=== PATIENT | female | born 1955 | race Caucasian/White ===

== ENCOUNTER 2023-09-13 12:50 | Inpatient (IN) | payer MEDICARE, OTHER, SELFPAY ==
[2023-09-13 13:50] VITALS: BMI 26.1
[2023-09-13 14:05] VITALS: BP 100/52; PULSE 84; RESP 17; TEMP 36.8; O2SAT 94
[2023-09-13] MEDS: Acetaminophen 325 MG Tablet 650 MG PO (15:11)
--- NOTE | 2023-09-13 15:15 | HP.PCM_ITS ---
HPI - General General Date of Admission: 09/13/23 Date of Service: 09/13/23 Chief Complaint: Debility secondary to left periprosthetic hip fracture/ORIF HPI Narrative MO LONG, is a 67 F with a PMH of Depression, HH, HTN, recurrent hyponatremia (no cause listed on H&P from [facility]) hx of BL TKA and hx of a LTHA in 2019 who presented to [facility] on 09/01/23 c/o of L hip pain after a ground level fall on 08/30/22 when she tripped over her own feet. Imaging revealed a left periprosthetic posterior wall acetabular fracture. Significant lab at admission included a low sodium at 129 with a BUN of 20 and a creatinine of 0.71. She underwent a cemented left hip hemiarthroplasty on 09/05/[address] Link Woodall. Postoperatively she was seen by PT/OT and a recommendation for acute inpatient rehab was made. She lives alone and prior to the recent fall she was independent with functional transfers, independent with household and community ambulation, independent with household management and all ADL's and she was driving. Mo was transferred to the in acute rehab unit at [facility] on 09/13/23 for 3 hours of therapy daily to restore function/independence at or near to her level prior to the recent fall. She tells me that she has not been out of bed for 2 weeks and had PT only once at [facility] and that was for the initial eval. She feels stiff and weak. She has never had a DEXA and she only sometimes takes a Vitamin D supplement. She had menopause in her late 40s. She has never been . [facility], [facility] Medical History (Updated 09/13/23 @ 19:[address] Julita Rasheed DO) Closed posterior wall fracture of left acetabulum Depression Hiatal hernia Hypertension Osteoarthritis Home Medications acetaminophen 325 mg capsule 650 mg PO Q4H PRN fever or pain 09/13/23 [History Last Taken Unknown] enoxaparin 40 mg/0.4 mL subcutaneous syringe (Lovenox) 40 mg subcut DAILY blood clot prevention 09/13/23 [History Last Taken Unknown] methocarbamol 500 mg tablet 500 mg PO TID PRN muscle spasm 09/13/23 [History Last Taken Unknown] multivitamin (Daily Multi-Vitamin tablet) 1 tab PO DAILY supplement 09/13/23 [History Last Taken Unknown] oxycodone 5 mg tablet 5 mg PO Q6H PRN pain 09/13/23 [History Last Taken Unknown] Allergy/AdvReac Type Severity Reaction Status Date / Time No Known Allergies Allergy Verified 09/13/23 13:54 Family History Mother Myocardial infarction Hypertension Father Prostate CA CVA (cerebral vascular accident) Family History unable to obtain Surgical History (Updated 09/13/23 @ 19:[address] Julita Rasheed DO) History of arthroplasty of left knee History of arthroplasty of right knee History of left hip hemiarthroplasty History of open reduction and internal fixation (ORIF) procedure History of tonsillectomy S/P total left hip arthroplasty Social History (Updated 09/13/23 @ 18:[address] 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 Smoking Status: Never smoker alcohol intake: current alcohol intake frequency: holidays/special occasions only details: Not currently substance use type: does not use ROS Constitutional Constitutional: Reports fatigue and weakness; Denies anorexia, change in weight, chills, fever(s) or night sweats Eyes Eyes: Denies blurry vision, change in vision, eye pain or loss of vision ENT HEENT: Denies abnormal hearing, dysphagia, headache(s), hearing loss, nasal congestion or sore throat Cardiovascular Cardiovascular: Denies chest pain, dyspnea on exertion, edema, lightheadedness, orthopnea, palpitations, paroxysmal nocturnal dyspnea or syncope Respiratory/Chest Respiratory/Chest: Denies cough, dyspnea, shortness of breath at rest, shortness of breath with exertion or wheezing Gastrointestinal Gastrointestinal: Denies abdominal pain, constipation, diarrhea, dyspepsia, hematemesis, hematochezia, nausea or vomiting Genitourinary Genitourinary: Reports other Details: She had a purewick catheter while at [facility] ; Denies dysuria, hematuria, nocturia, urinary frequency, urinary hesitancy, urinary incontinence or urinary urgency Musculoskeletal Musculoskeletal: Reports arthralgias, difficulty walking, joint pain, muscle weakness and stiffness; Denies back pain, joint swelling, neck pain or numbness Integumentary Integumentary: Reports dry skin; Denies alopecia, hirsutism, jaundice or rash Neurologic Neurologic: Denies confusion, disequilibrium, dizziness, focal weakness, headache(s), paresthesias, seizures or tremor(s) Psychiatric Psychiatric: Reports depression; Denies anxiety, homicidal ideation or suicidal ideation Endocrine Endocrinology: Denies change in body appearance, polydipsia or polyuria Hematologic/Lymphatic Hematologic/Lymphatic: Denies easy bleeding, easy bruising or lymphadenopathy Allergic/Immunologic Allergic/Immunologic: Denies rhinitis, eczemia or asthma Vital Signs Vital Signs Vital Signs: 09/13/23 14:05 Temperature 98.3 F Temperature Source Temporal Pulse Rate 84 Respiratory Rate 17 Blood Pressure 100/52 L Blood Pressure Mean 68 Blood Pressure Source Monitor Blood Pressure Position Semi-Fowlers Blood Pressure Location Right Arm Pulse Ox 94 Oxygen Delivery Method Room Air Weight Weight: 162 lb 0.636 oz Body Mass Index (BMI) 26.1 Physical Exam Const alert, oriented x3 and no apparent distress Constitutional Narrative: Making good eye contact, appropriate. Very talkative, pleasant General Appearance: cooperative and comfortable HEENT normocephalic, head/scalp atraumatic and hearing grossly normal bilaterally HEENT Narrative: Dry mucous membranes Eyes PERRL, EOMs intact bilaterally, conjunctivae normal, no scleral icterus and normal visual churchill by confrontation General Eye: normal appearance of both eyes Neck no lymphadenopathy, supple, no JVD and no carotid bruits Chest Chest: symmetrical chest wall rise Resp normal respiratory effort, normal air movement, no use of accessory muscles and clear to auscultation bilaterally Resp Narrative: Not tachypneic and no conversational dyspnea. Effort and Inspection: able to speak in complete sentences Cardio regular rate, regular rhythm, S1 normal heart sound, S2 normal heart sound, no murmurs, no rub and no gallops GI normal to inspection, nondistended, normoactive bowel sounds, soft to palpation and non-tender GI Narrative: No guarding with palpation. Narrative: She tells me she is having muscle spasms in the left flank. She did have a pure wick catheter at [facility] and could have a UTI. She denies nausea. She also denies dysuria. Back/Spine thoracic and lumbar spine normal to inspection Extremity no clubbing, cyanosis or edema and no calf tenderness Extremity Narrative: Negative Sonny's and Lilly's signs. The dorsalis pedis pulses are barely palpable but she has good posterior tibial pulses bilaterally and the popliteal pulses are 3+ bilaterally. The feet are warm to touch bilaterally. Skin no jaundice, no petechiae and no mottling Skin Narrative: No rashes, no skin breakdown. General Skin Exam: no breakdown Rashes: no rashes Hair: normal Neuro oriented x3, CN's II-XII intact bilaterally and no focal motor deficits Motor Exam: strength 5/5 throughout Psych affect normal Psych Narrative: Appropriate, making good eye contact. Able to stay on topic and focus. No flight of ideas. Does not appear anxious or depressed. Conversant and relating well to staff. Assessment & Plan Assessment/Plan (1) Debility: (2) Closed posterior wall fracture of left acetabulum: QUALIFIERS: Encounter type: subsequent encounter Fracture alignment: displaced (3) History of left hip hemiarthroplasty: (4) Osteoarthritis: QUALIFIERS: Osteoarthritis location: multiple joints Osteoarthritis type: primary Qualified Code(s): M15.9 - Polyosteoarthritis, unspecified (5) Depression: QUALIFIERS: Depression Type: reactive depression Qualified Code(s): F32.9 - Major depressive disorder, single episode, unspecified (6) Hypertension: QUALIFIERS: Hypertension type: primary hypertension Qualified Code(s): I10 - Essential (primary) hypertension PLAN: Plan PLAN PT for gait stability OT for ADL's Analgesics as needed - pt prefers that pain meds be scheduled for the first few days Bowel protocol Fall precautions Assess for Anxiety/Depression GI prophylaxis -not necessary at this time. She denies any history of peptic ulcer disease and also denies heartburn at the present time. She also denies nausea/vomiting/epigastric pain. DVT prophylaxis with enoxaparin Follow up with PCP and orthopedics following DC from [facility] AM lab including CMP, CBC, Mag, vitamin D and Phos Straight cath for UA Recommend she have a DEXA done as an OP to determine if she has osteopenia or osteoporosis Charges/Coding Visit Charges Inpatient E&M: 37320 Init Hosp L2
[2023-09-13] MEDS: oxyCODONE 5 MG Tablet PO (17:56)
[2023-09-13 18:04] VITALS: BP 111/66; PULSE 75; RESP 17; TEMP 37.4; O2SAT 95
--- NOTE | 2023-09-13 19:14 | PCM.RU.PYE ---
Admission Information Primary Diagnosis:: Physical debility secondary to recent left hip periprosthetic fracture/hemiarthroplasty Status Changes from Prescreening?: No changes Identified Actual Problem List:: Falls, Skin Intergrity, Pain, ALteration in Cmfrt, Depression, Alteration in Sleep, Mobility Impaired, Self Care Deficit, Fluid Change-Dehydration and Alteration-Leisure Activ. Potential Problem List:: DVT, Bleeding, Infection, UTI, Aspiration, Falls, Skin Integrity and Depression Risk of Complications DVT: LMWH and MARLY Hose Bleeding: Monitor Lab Values, Nursing to Teach Precautions for anti-coagulation therapy., Wound, if applicable, to be assessed every shift. and Stroke patients assessed for lethargy or change in status. Infection: Clinical Staff to Monitor for S/S of infection: and S/S of infection include fever, redness, warmth, etc. Urinary Tract Infection: Monitor for frequency, burning, discomfort, or incontinence. and Nursing will obtain urine sample for urinalysis and C&S when ordered. Aspiration: Clinical staff will monitor for coughing, drooling, congestion., Speech will evaluate swallowing and dsyphasia. and Nursing will monitor patient swallowing during meals. Falls: Patient will be evaluated for Fall Precautions and Patient will be placed on Fall Precautions as indicated per protocol. Skin Breakdown: Nursing will assess skin daily using assessment tool. and Nursing will place on Skin Breakdown Precautions as indicated. Pain: Clinical staff will assess patient's pain level per protocol., Medications will be given, if needed, and the pain level reassessed. and Other methods: Massage, distraction, decrease stimulus, etc. used PRN. Plan of Care Patient requires physician specializing in physical medicine and rehab oversight to provide close medical supervision of rehab issues including: Pain Management, Sleep Problems, Bowel and Bladder, Medical and co-morbidity Management, DVT prophylaxis, Rehabilitation Leadership and Coordination of treatment team Patient needs Physical Therapy: For a minimum of 1 hour and At least 5 out of 7 days Patient needs Physical Therapy to improve:: Mobility, Strengthening, Transfers, Stretching, ROM, Endurance, Stairs, Gait and Balance Patient needs Occupational Therapy: For a minimum of 1 hour and At least 5 out of 7 days Patient needs Occupational Therapy to improve ADL's incl.: Eating, Grooming, Bathing, Dressing, Toileting, Toilet transfers, Community Reintegration, Higher functioning activities, Household tasks, Adaptive Equipment, Splinting and Other activities as determined Patient requires 24/7 Rehabilitation Nursing for: Pain Issues, Identifying and preventing risk factors, Monitoring and reporting current medical conditions, Assisting with ambulation, transfer, and all ADL's, Teaching patients about disease process and medications, Family teaching, Providing safe environment, Bowel and Bladder Issues, Skin integrity and Medication Management Patient needs Union Contract Representative/ Case Management for: Discharge Planning, Arranging Home Equipment or Services and Family Interventions Patient needs Dietary and Nutrition Services for: Adequate Nutrition, Nutritional Supplements and Nutritional Education Goals Goals Patient will remain: free from falls Patient will perform eating at: MOD I level of assist. Patient will perform bed mobility at: MOD I level of assist. Patient will complete transfers from bed to chair at: MOD I level of assist. Patient will ambulate: - (150 feet on various surfaces, including a ramp, at standby assist with a wheeled walker) Patient will complete upper body dressing at: MOD I level of assist. Patient will complete lower body dressing at: MOD I level of assist. (With adaptive equipment as needed) Patient will complete toilet transfer at: MOD I level of assist. Patient will complete toileting at: MOD I level of assist. Patient will perform bathing at: MOD I level of assist. Patient will perform Tub/Shower transfer at: MOD I level of assist. Patient will complete grooming at: MOD I level of assist. Patient will complete home management skills at: MOD I level of assist. Patient will achieve: 12 stairs (With 2 handrails at standby assist to allow access to her bedroom.) Patient will have pain level of: of 3 or less Patient's skin will: remain intact Patient will receive: adequate nutrition. Discharge Planning Pt Prognosis for Sig. Practical Improv. w/in Reasonable Time: Good Estimated Length of stay (days): 21 Anticipated D/C Destination: Home with Home Health Was Preadmission Assessment Accurate?: Yes
[2023-09-13 20:40] VITALS: O2SAT 95
--- NOTE | 2023-09-13 20:40 | CPS ---
pep/smi not done due to RT busy in ED
[2023-09-13] MEDS: Senna/Docusate Sodium 1 Tablet 2 TABLET PO (21:41)
[2023-09-13] MEDS: oxyCODONE 5 MG Tablet 10 MG PO (21:41)
[2023-09-13 22:00] VITALS: BP 111/66; PULSE 75; RESP 17; TEMP 37.4; O2SAT 95
[2023-09-13] MEDS: Methocarbamol 500 MG Tablet PO (22:30)
[2023-09-14 01:37] LABS: Bacteria 0 SEEN /hpf (None Seen); Mucous, Urine 0 SEEN /hpf (<or=2+); Red Blood Cells-Urine 0 SEEN /hpf (0-5); White Blood Cells 0 SEEN /hpf (0-5)
[2023-09-14 01:38] LABS: Color, Urine Yellow (Yellow); Glucose, Dipstick Normal (Normal); Ketone-Dipstick Negative (Negative); Leukocyte Esterase-Dipstick Negative /ul (Negative); Nitrite-Dipstick Negative (Negative); Occult Blood-Urine Negative /ul (Negative); Protein-Dipstick Negative (Negative); Specific Gravity, Urine 1.015 (1.002-1.030); Urine Bilirubin Dipstick Negative (Negative); Urine Clarity Clear (Clear); Urine Urobilinogen Normal (Normal)
[2023-09-14 01:46] LABS: Squamous Epithelial Cells - UA 0-5 SEEN /hpf (5-10)
[2023-09-14] MEDS: Acetaminophen 500 MG Tablet 1000 MG PO ×2 (03:42→13:30)
[2023-09-14] MEDS: Enoxaparin 40 MG/0.4 ML Syringe SC (05:03)
[2023-09-14] MEDS: oxyCODONE 5 MG Tablet PO ×3 (05:03→15:53)
[2023-09-14 06:06] LABS: Absolute Lymphocyte Count 1.87 X10^3/uL (0.83-4.51); Absolute Neutrophil Count 5.3 X10^3/uL (2.0-7.7); Basophil# 0.04 X10^3/uL; Basophil% 0.5 % (0-1); Eosinophil# 0.35 X10^3/uL; Eosinophils% 4.1 % (0-5); Hematocrit 23.2 % (37-47); Hemoglobin 7.3 g/dL (12.0-15.0); Lymphocyte # 1.87 X10^3/ul (0.83-4.51); Lymphocyte % 21.9 % (19-41); Mean Corp Hgb Conc 31.5 g/dL (32-36); Mean Corpuscular Hgb 31.9 pg (27.0-32.0); Mean Corpuscular Volume 101.3 fL (81-99); Mean Platelet Vol. 7.9 fl (6.2-12.0); Monocyte# 0.93 X10^3/uL; Monocyte% 10.9 % (0-10); NRBC Flagged by Analyzer 0 % (0-5); Neutrophil # 5.28 X10^3/uL (2.7-7.7); Neutrophil % 61.9 % (47-70); POSITIVE COUNT YES; RBC Distribution Width CV 13.2 % (11.6-14.6); RBC Distribution Width SD 48.8 fl (35.1-43.9); Red Blood Count 2.29 M/mm3 (4.2-5.4); White Blood Count 8.5 K/mm3 (4.4-11.0)
[2023-09-14 06:52] LABS: ALB/GLOB Ratio 0.6 RATIO (0.9-2.4); AST(SGOT) 26 U/L (15-37); Alanine Aminotransfer ALT/SGPT 32 U/L (13-56); Albumin, Serum 2.4 g/dL (3.2-5.0); Alkaline Phosphatase 119 U/L (45-117); Anion Gap 6 (5-15); BUN 20 mg/dL (7-18); BUN/Creat Ratio 35.1 RATIO (10-20); Calcium,Total 8.5 mg/dL (8.5-10.1); Chloride 101 mmol/L (98-107); Creatinine, Serum 0.57 mg/dL (0.55-1.02); EST Glomerular Filtration Rate 112 mL/min (>60); Est Glom Filt Rate - Afr Amer 136 mL/min (>60); Estimated Creatinine Clearance 51.11 ml/min; Globulin 4.3 g/dL (2.2-4.2); Glucose 95 mg/dL (74-106); Magnesium 2.3 mg/dL (1.6-2.6); Phosphorus 3.3 mg/dL (2.5-4.9); Potassium 3.8 mmol/L (3.5-5.1); Protein, Total 6.7 g/dL (6.4-8.2); Sodium Level 133 mmol/L (136-145)
[2023-09-14 07:05] VITALS: O2SAT 93
[2023-09-14 07:26] LABS: Differential Indicated SCAN CRITERIA MET; Platelet Count 836 K/mm3 (150-450)
[2023-09-14] MEDS: Methocarbamol 500 MG Tablet PO ×3 (08:10→20:29)
[2023-09-14] MEDS: Senna/Docusate Sodium 1 Tablet 2 TABLET PO ×2 (08:14→20:28)
[2023-09-14] MEDS: Multivitamins,Therapeutic Tablet 1 TABLET PO (08:15)
--- NOTE | 2023-09-14 08:15 | NURSING ---
Dr. Rasheed aware of elevated platelet count. JETHRO's.
[2023-09-14 08:18] LABS: Vitamin D,25 Hydroxy 40.6 ng/mL
[2023-09-14 08:29] LABS: Differential Comment SCANNED; Platelet Estimate MKD INC (ADEQ)
[2023-09-14 08:59] VITALS: BP 107/72; PULSE 78; RESP 18; TEMP 36.8; O2SAT 95
--- NOTE | 2023-09-14 10:49 | PCM.PROGNOTE ---
Subjective Subjective Afebrile VSS Maintaining appropriate oxygen saturation on RA Oral intake is fair-she ate 50 to 74% of her breakfast. Discussed with nursing - no problems that need addressed Reviewed the PT/OT notes Medication list reviewed. All lab drawn this morning was personally reviewed. White blood cell count is normal at 8.5 with an unremarkable differential. Hemoglobin is 7.3 with an MCV of 101.3. Platelets are high at 836,000. The hemoglobin was 8.3 at discharge from [facility]. Sodium is mildly decreased at 133 and potassium is 3.8. The BUN is 20 with a creatinine of 0.57 and a BUN/creatinine ratio of 35.1. Phosphorus, magnesium and calcium are all within normal limits. LFTs are unremarkable. Vitamin D level is within normal limits at 40.6. UA had no bacteria and no white blood cells. She did not fall asleep until 3:00 last night. She tells me her pain is adequately controlled. She has some lightheadedness when sitting up today. She denies chest pain, shortness of breath, palpitations, dysuria, cephalgia, calf pain. Objective Data Objective Data Vital Signs: Vital Signs Temp Pulse Resp BP Pulse Ox O2 Del Method 98.2 F 78 18 107/72 95 Room Air 09/14/23 08:59 09/14/23 08:59 09/14/23 08:59 09/14/23 08:59 09/14/23 08:59 09/14/23 08:59 Oxygen Delivery Method Room Air Weight: 162 lb 0.636 oz Body Mass Index (BMI) 26.1 Intake & Output: Intake and Output for Last 24 Hours 09/12/23 09/13/23 09/14/23 23:59 23:59 23:59 Intake Total 320 / 570 850 / 850 Output Total 400 / 700 300 / 300 Balance -80 / -130 550 / 550 Lab / Micro Data 09/14/23 05:46 09/14/23 05:46 Labs: Laboratory Results - last 24 hr 09/13/23 22:28: Urine Color Yellow, Urine Clarity Clear, Urine pH 6.0, Ur Specific Anderson 1.015, Urine Protein Negative, Urine Glucose (UA) Normal, Urine Ketones Negative, Urine Occult Blood Negative, Urine Nitrite Negative, Urine Bilirubin Negative, Urine Urobilinogen Normal, Ur Leukocyte Esterase Negative, Urine RBC 0 SEEN, Urine WBC 0 SEEN, Ur Squamous Epith Cells 0-5 SEEN, Urine Bacteria 0 SEEN, Urine Mucus 0 SEEN 09/14/23 05:46: WBC 8.5, RBC 2.29 L, Hgb 7.3 L, Hct 23.2 L, MCV 101.3 H, MCH 31.9, MCHC 31.5 L, RDW Std Deviation 48.8 H, RDW Coeff of Kindra 13.2, Plt Count 836 H*, MPV 7.9, Immature Gran % (Auto) 0.700, Neut % (Auto) 61.9, Lymph % (Auto) 21.9, Thayer % (Auto) 10.9 H, Eos % (Auto) 4.1, Baso % (Auto) 0.5, Absolute Neuts (auto) 5.3, Absolute Lymphs (auto) 1.87, Nucleated RBC % 0, Differential Comment SCANNED, Diff Path Review January, Platelet Estimate MKD INC, Sodium 133 L, Potassium 3.8, Chloride 101, Carbon Dioxide 26.0, Anion Gap 6, BUN 20 H, Creatinine 0.57, Estim Creat Clear Calc 51.11, Est GFR (MDRD) Af Amer 136, Est GFR (MDRD) Non-Af 112, BUN/Creatinine Ratio 35.1 H, Glucose 95, Calcium 8.5, Phosphorus 3.3, Magnesium 2.3, Total Bilirubin 0.40, AST 26, ALT 32, Alkaline Phosphatase 119 H, Total Protein 6.7, Albumin 2.4 L, Globulin 4.3 H, Albumin/Globulin Ratio 0.6 L, Vitamin D 25-Hydroxy 40.6 Physical Exam Const alert, oriented x3 and no apparent distress Constitutional Narrative: Laying flat in bed with no JVD and no shortness of breath. General Appearance: cooperative HEENT Mouth: dry mucous membranes Resp clear to auscultation bilaterally Cardio regular rate, regular rhythm and no gallops GI normal to inspection, nondistended, normoactive bowel sounds, soft to palpation and non-tender GI Narrative: No guarding with palpation Extremity no calf tenderness General Extremity: Negative for edema Skin Skin Narrative: The incision is intact with no dehiscence. There is no carlitos-incisional erythema and no purulent discharge. Neuro CN's II-XII intact bilaterally, no focal motor deficits and no sensory deficits noted Psych cooperative and affect normal Appearance: appropriate Attitude: No agitated Activity / Motor Behavior: Negative for restless Assessment & Plan Assessment/Plan (1) Debility: (2) Closed posterior wall fracture of left acetabulum: QUALIFIERS: Encounter type: subsequent encounter Fracture alignment: displaced (3) History of left hip hemiarthroplasty: (4) Osteoarthritis: QUALIFIERS: Osteoarthritis location: multiple joints Osteoarthritis type: primary Qualified Code(s): M15.9 - Polyosteoarthritis, unspecified (5) Depression: QUALIFIERS: Depression Type: reactive depression Qualified Code(s): F32.9 - Major depressive disorder, single episode, unspecified (6) Hypertension: QUALIFIERS: Hypertension type: primary hypertension Qualified Code(s): I10 - Essential (primary) hypertension (7) Hyponatremia: (8) Dehydration: (9) Acute blood loss anemia: (10) Thrombocytosis: PLAN: Plan 1. Continue therapy 2. Type and screen for active blood cells in anticipation of having to transfuse following hydration today. I suspect hemoglobin will drop to less than 7. 3. Thrombocytosis is likely reactive 4. Start normal saline and give a 500 cc bolus over 1 hour and then run the IV at 100 cc/h for an additional 2 L. 5. Recheck a hemoglobin and hematocrit at 6 PM today and if hemoglobin is less than 7 transfuse 6. Check a urine sodium, urine creatinine and calculate a fractional excretion of sodium 7. Check a TSH Charges/Coding Visit Charges Inpatient E&M: 21607 Subs Hosp L2
[2023-09-14] MEDS: 0.9% Normal Saline (250mL Bag) 250 ML 999 ML IV (11:36)
[2023-09-14 12:06] LABS: Thyroid Stim Hormone (TSH) 0.62 uIU/mL (0.358-3.74)
[2023-09-14] MEDS: 0.9% Normal Saline (1000mL) 1,000 ML 100 ML IV ×2 (12:15→21:30)
[2023-09-14 14:27] LABS: Urine Sodium 18 mmol/L (Not Establ.)
[2023-09-14 19:25] LABS: Hematocrit 22.4 % (37-47); Hemoglobin 7.2 g/dL (12.0-15.0)
[2023-09-14] MEDS: oxyCODONE 5 MG Tablet 10 MG PO (20:28)
[2023-09-14 22:00] VITALS: BP 109/63; PULSE 98; RESP 18; TEMP 36.2; O2SAT 92
[2023-09-15] MEDS: Acetaminophen 500 MG Tablet 1000 MG PO ×2 (02:51→22:52)
[2023-09-15] MEDS: oxyCODONE 5 MG Tablet PO ×3 (04:24→15:57)
[2023-09-15] MEDS: Enoxaparin 40 MG/0.4 ML Syringe SC (04:24)
[2023-09-15] MEDS: Methocarbamol 500 MG Tablet PO ×2 (04:25→23:22)
[2023-09-15 05:56] LABS: Hemoglobin 7.3 g/dL (12.0-15.0)
[2023-09-15 06:00] VITALS: BMI 22.8
[2023-09-15 06:41] LABS: Anion Gap 5 (5-15); BUN 13 mg/dL (7-18); Calcium,Total 8.1 mg/dL (8.5-10.1); Chloride 107 mmol/L (98-107); Creatinine, Serum 0.46 mg/dL (0.55-1.02); EST Glomerular Filtration Rate 142 mL/min (>60); Est Glom Filt Rate - Afr Amer 172 mL/min (>60); Estimated Creatinine Clearance 51.11 ml/min; Glucose 95 mg/dL (74-106); Sodium Level 136 mmol/L (136-145)
[2023-09-15] MEDS: Senna/Docusate Sodium 1 Tablet 2 TABLET PO ×2 (08:57→21:23)
[2023-09-15] MEDS: Multivitamins,Therapeutic Tablet 1 TABLET PO (08:57)
[2023-09-15 09:18] VITALS: BP 137/78; PULSE 76; RESP 17; TEMP 36.8; O2SAT 99
--- NOTE | 2023-09-15 11:00 | NURSING ---
30 cory removed from patient's hip. pt tolerated well. ABD's and tape placed over incision d/t some drainage present.
--- NOTE | 2023-09-15 11:50 | NURSING ---
Contacted Dr Cisneros's office for podiatry consult. Dr Culver is on-call so he will be seeing the pt.
[2023-09-15 12:04] LABS: Pathologist Review Reviewed
--- NOTE | 2023-09-15 13:17 | PCM.CONS.GEN ---
Assessment & Plan Assessment/Plan (1) Chronic pain of toe of right foot: (2) Chronic pain of toe of left foot: (3) Tinea unguium: (4) Debility: PLAN: Plan Patient seen and evaluated I reviewed the patient's case. The etiology of thickened toenails was briefly reviewed including fungus or microtrauma. The nails 1, 2, 3, 4, and 5 of the left and right foot were debrided with a nail nipper after verbal consent was obtained without incident. The nails 1, 2, 3, 4, and 5 of the left and right foot were debrided in length and thickness to reduce pressure, potential fungal load, and to prevent wound formation. The patient tolerated this well. The patient elects proceed with palliative care only at this time with the nails and will hold off on further work-up. To wear protective and supportive shoes. To check feet daily and keep webspaces clean and dry. To moisturize skin to preserve skin integrity was also recommended. Patient will continue physical rehabilitation s/p hemiarthroplasty/ORIF left hip fracture while in house. Podiatry to sign off Jr. Carmen Mullins.[facility] [phone] HPI Consult Data Date of Consult: 09/15/23 HPI Narrative Reason for Consultation: Thickened, elongated nails 1-5 bilateral. HPI Narrative: ALLISON LONG, is a 67 F who presents to [facility] for strengthening and rehabilitation prior to discharge home following left hip fracture. Patient states she was at home in her house when she tripped over her own feet falling on her left side resulting in left hip fracture. She was treated surgically at [facility] in [place] and was transferred for rehabilitation at [facility]. Patient is participating in physical therapy and states she is trying to do the best she can but still admits to some pain and discomfort. She does complain today of elongated, thickened nails 1 through 5 bilateral foot and states that it is creating difficulty wearing shoes and using toes to aid in balance. She is asking for assistance and debridement of nails today. Patient is nondiabetic. She was consulted to podiatry for debridement of toenails 1 through 5 bilateral. [facility] Medical History (Updated 09/15/23 @ 13:[address] Td Andrew, DPM) Closed posterior wall fracture of left acetabulum Depression Hiatal hernia Hypertension Osteoarthritis Home Medications acetaminophen 325 mg capsule 650 mg PO Q4H PRN fever or pain 09/13/23 [History Last Taken Unknown] enoxaparin 40 mg/0.4 mL subcutaneous syringe (Lovenox) 40 mg subcut DAILY blood clot prevention 09/13/23 [History Last Taken Unknown] methocarbamol 500 mg tablet 500 mg PO TID PRN muscle spasm 09/13/23 [History Last Taken Unknown] multivitamin (Daily Multi-Vitamin tablet) 1 tab PO DAILY supplement 09/13/23 [History Last Taken Unknown] oxycodone 5 mg tablet 5 mg PO Q6H PRN pain 09/13/23 [History Last Taken Unknown] Allergy/AdvReac Type Severity Reaction Status Date / Time No Known Allergies Allergy Verified 09/13/23 13:54 Family History Mother Myocardial infarction Hypertension Father Prostate CA CVA (cerebral vascular accident) Family History unable to obtain Surgical History (Updated 09/13/23 @ 19:[address] Julita Rasheed DO) History of arthroplasty of left knee History of arthroplasty of right knee History of left hip hemiarthroplasty History of open reduction and internal fixation (ORIF) procedure History of tonsillectomy S/P total left hip arthroplasty Social History (Updated 09/13/23 @ 18:[address] 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 Smoking Status: Never smoker alcohol intake: current alcohol intake frequency: holidays/special occasions only details: Not currently substance use type: does not use ROS Constitutional Constitutional: Denies chills, fatigue or fever(s) Eyes Eyes: Denies blurry vision, diplopia or loss of vision ENT HEENT: Denies dysphagia, nasal congestion or sore throat Cardiovascular Cardiovascular: Denies chest pain, cold extremities or palpitations Respiratory/Chest Respiratory/Chest: Denies cough, dyspnea or wheezing Gastrointestinal Gastrointestinal: Denies abdominal pain, constipation, diarrhea, nausea or vomiting Genitourinary Genitourinary: Denies dysuria, hematuria or urinary urgency Musculoskeletal Musculoskeletal: Denies joint pain, joint stiffness or joint swelling Integumentary Integumentary: Denies lesions, pruritus or rash Neurologic Neurologic: Denies dizziness, numbness or seizures Psychiatric Psychiatric: Denies anxiety Endocrine Endocrinology: Denies cold intolerance, heat intolerance, polydipsia or polyuria Hematologic/Lymphatic Hematologic/Lymphatic: Denies lymphadenopathy Allergic/Immunologic Allergic/Immunologic: Denies wheezing Physical Exam Const alert, oriented x3 and no apparent distress General Appearance: cooperative HEENT normocephalic Eyes General Eye: normal appearance of both eyes Neck General: normal visual inspection Lymph Lymphatic: no lymphadenopathy noted and no lymphedema noted Resp normal respiratory effort Cardio regular rate and regular rhythm Extremity normal capillary refill, no joint enlargement, no calf tenderness and no pedal edema Extremity Narrative: DP pulses weakly palpable bilateral. PT pulses palpable bilateral. Capillary fill time less than 5 seconds to digits bilateral. No pedal edema noted. Dermatological: Skin is slightly xerotic bilateral plantar foot. Webspaces C/D/I. Nails 1, 2, 3, 4, 5 of the left and right foot are thickened, discolored yellow, elongated, incurvated, with presence of subungual debris and pain to direct palpation secondary to thickness. Musculoskeletal: Muscle strength 5 of 5 age-appropriate for right foot. There is noted weakness of the left foot/leg secondary to recent hip replacement to treat left hip fracture. Patient's gait is assisted by a walker. Skin no rashes or lesions noted, skin turgor normal and no jaundice Neuro moves all extremities Lab / Micro Data 09/15/23 05:41 09/15/23 05:41 Labs: Laboratory Results - last 24 hr 09/14/23 05:46: Diff Path Review Reviewed 09/14/23 14:00: Ur Random Sodium 18, Urine Creatinine 35.20 09/14/23 19:15: Hgb 7.2 L, Hct 22.4 L 09/15/23 05:41: Hgb 7.3 L, Hct 23.0 L, Sodium 136, Potassium 4.0, Chloride 107, Carbon Dioxide 24.0, Anion Gap 5, BUN 13, Creatinine 0.46 L, Estim Creat Clear Calc 51.11, Est GFR (MDRD) Af Amer 172, Est GFR (MDRD) Non-Af 142, BUN/Creatinine Ratio 28.0 H, Glucose 95, Calcium 8.1 L
--- NOTE | 2023-09-15 14:32 | CHAPLAIN ---
Type of Pastoral Visit _x__ Initial Visit ___ Follow-up Visit ___ On-call Visit ___ General Patient Visit ___ Spiritual Assessment ___ Family Conference ___ Bereavement ___ Rapid Response ___ Code Blue ___ Other (describe below) Pastoral Care Referral From _x__ Patient ___ Family ___ Nurse ___ Physician ___ Sciences Dean ___ Cloth Winder ___ Other (describe below) Sacrament/Intervention ___ Active listening ___ Anointing ___ Mandaeism ___ Bereavement ___ Communion ___ Felisha exploration ___ ___ Life review ___ Prayer ___ Reconciliation ___ Sacrament of Sick _x__ Supportive presence ___ Wedding ___ Other (describe below) Pastoral Comments stopped in patient's room and she is involved in therapy at this time; pt states that a visit at another time would be fine; pt states that she is doing better now than at this time last week; pt states that she has people praying for her which is important; another visit will be attempted at another time
[2023-09-15 15:41] VITALS: O2SAT 96
[2023-09-15 17:38] LABS: Bedside Glucose 89 mg/dL (74-106)
--- NOTE | 2023-09-15 18:26 | CASEMGMT ---
Social Work Pt reports to having advanced directives and brother is HCPOA, but unsure where they are located to provide hospital with copies. Kathleen Cowan, STARTING GATE DRIVER CHILD CARE EDUCATION COORDINATOR
[2023-09-15 19:33] VITALS: BP 113/68; PULSE 80; RESP 18; TEMP 37.4; O2SAT 97
[2023-09-15] MEDS: oxyCODONE 5 MG Tablet 10 MG PO (21:23)
[2023-09-16] MEDS: oxyCODONE 5 MG Tablet PO ×3 (05:13→16:57)
[2023-09-16] MEDS: Enoxaparin 40 MG/0.4 ML Syringe SC (05:13)
[2023-09-16] MEDS: 0.9% Saline Lock 10 ML Syringe IV (06:48)
[2023-09-16] MEDS: Multivitamins,Therapeutic Tablet 1 TABLET PO (07:56)
[2023-09-16] MEDS: Methocarbamol 500 MG Tablet PO ×3 (07:56→21:06)
[2023-09-16] MEDS: Acetaminophen 500 MG Tablet 1000 MG PO ×2 (07:57→17:02)
[2023-09-16 08:00] VITALS: BP 124/68; PULSE 79; RESP 16; TEMP 37.1; O2SAT 98
[2023-09-16 19:56] VITALS: BP 117/75; PULSE 78; RESP 18; TEMP 36.4; O2SAT 97
[2023-09-16] MEDS: Senna/Docusate Sodium 1 Tablet 2 TABLET PO (21:06)
[2023-09-16] MEDS: oxyCODONE 5 MG Tablet 10 MG PO (21:06)
[2023-09-17] MEDS: Methocarbamol 500 MG Tablet PO ×3 (01:37→21:05)
[2023-09-17] MEDS: Acetaminophen 500 MG Tablet 1000 MG PO ×3 (01:38→21:06)
[2023-09-17] MEDS: oxyCODONE 5 MG Tablet PO ×3 (05:35→16:26)
[2023-09-17] MEDS: Enoxaparin 40 MG/0.4 ML Syringe SC (05:36)
[2023-09-17] MEDS: 0.9% Saline Lock 10 ML Syringe IV ×2 (05:36→21:06)
[2023-09-17 07:41] VITALS: BP 95/57; PULSE 71; RESP 18; TEMP 37.1; O2SAT 94
[2023-09-17] MEDS: Senna/Docusate Sodium 1 Tablet 2 TABLET PO (08:48)
[2023-09-17] MEDS: Multivitamins,Therapeutic Tablet 1 TABLET PO (08:48)
[2023-09-17 19:48] VITALS: BP 131/82; PULSE 80; RESP 16; TEMP 37.2; O2SAT 98
[2023-09-17] MEDS: oxyCODONE 5 MG Tablet 10 MG PO (21:05)
[2023-09-18] MEDS: Methocarbamol 500 MG Tablet PO ×3 (03:08→20:00)
[2023-09-18] MEDS: Enoxaparin 40 MG/0.4 ML Syringe SC (04:23)
[2023-09-18] MEDS: oxyCODONE 5 MG Tablet PO ×3 (04:23→16:34)
[2023-09-18] MEDS: Multivitamins,Therapeutic Tablet 1 TABLET PO (07:44)
[2023-09-18] MEDS: Acetaminophen 500 MG Tablet 1000 MG PO ×2 (07:46→16:33)
[2023-09-18 08:00] VITALS: BP 121/77; PULSE 73; RESP 16; TEMP 36.8; O2SAT 97
--- NOTE | 2023-09-18 15:27 | PN_ITS ---
Subjective Subjective Afebrile VSS Maintaining appropriate oxygen saturation on RA Oral intake is good Discussed with nursing - no problems that need addressed Reviewed the PT/OT notes Medication list reviewed. Making good progress with therapy. she is c/o urinary frequency sam at night. Denies dysuria and hematuria. She has been AF. WBC is increased today at 13.2. PLT's are 966,000 now. I am still suspecting this is reactive to fall/fracture and surgery and also probably infection. Denies pruritus, no hemorrhagic events. No thrombosis. No unusual wt loss. Denies chest pain, shortness of breath, no focal neurologic deficits, no confusion, no night sweats, no rigors, no nausea/vomiting/abdominal pain. Objective Data Objective Data Vital Signs: Vital Signs Temp Pulse Resp BP Pulse Ox O2 Del Method 98.3 F 73 16 121/77 H 97 Room Air 09/18/23 08:00 09/18/23 08:00 09/18/23 08:00 09/18/23 08:00 09/18/23 08:00 09/18/23 08:00 Oxygen Delivery Method Room Air Weight: 141 lb 12.116 oz Body Mass Index (BMI) 22.8 Intake & Output: Intake and Output for Last 24 Hours 09/16/23 09/17/23 09/18/23 23:59 23:59 23:59 Intake Total 1280 / 1280 1750 / 1750 1480 / 1480 Output Total 900 / 900 450 / 450 250 / 250 Balance 380 / 380 1300 / 1300 1230 / 1230 Lab / Micro Data 09/22/23 16:40 09/15/23 05:41 Physical Exam Const alert, oriented x3 and no apparent distress Constitutional Narrative: Sitting in the recliner at the bedside appears comfortable. General Appearance: cooperative Eyes General Eye: normal appearance of both eyes Resp normal respiratory effort, normal air movement and clear to auscultation bilaterally Resp Narrative: No conversational dyspnea Effort and Inspection: Negative for tachypneic Cardio regular rate, regular rhythm and no gallops GI normal to inspection, nondistended, normoactive bowel sounds, soft to palpation and non-tender Extremity normal capillary refill, no joint enlargement, no calf tenderness and no pedal edema Skin no rashes or lesions noted Rashes: no rashes Wound Narrative: The incision is intact with no dehiscence, no carlitos-incisional erythema and no purulent discharge. There is still a small amount of swelling around the incision and in the dependent portion of the upper. Psych cooperative Psych Narrative: Seems that she is worried about people judging her. Maybe a little paranoid. Does not seem depressed or anxious. Makes good eye contact with me. Appearance: appropriate Attitude: No agitated Assessment & Plan Assessment/Plan (1) Debility: (2) Closed posterior wall fracture of left acetabulum: QUALIFIERS: Encounter type: subsequent encounter Fracture align ment: displaced (3) History of left hip hemiarthroplasty: (4) Osteoarthritis: QUALIFIERS: Osteoarthritis location: multiple joints Osteoarthritis type: primary Qualified Code(s): M15.9 - Polyosteoarthritis, unspecified (5) Depression: QUALIFIERS: Depression Type: reactive depression Qualified Code(s): F32.9 - Major depressive disorder, single episode, unspecified (6) Hypertension: QUALIFIERS: Hypertension type: primary hypertension Qualified Code(s): I10 - Essential (primary) hypertension (7) Hyponatremia: (8) Dehydration: (9) Acute blood loss anemia: (10) Thrombocytosis: (11) Urinary incontinence: PLAN: more likely than not due to a UTI (12) Chronic fatigue: PLAN: etiology (13) Leukocytosis: (14) Cystitis: PLAN: Plan 1. Continue therapy 2. Recheck H&H in the a.m. 3. Patient will have to cancel her follow-up appointment with the surgeon and nursing will call tomorrow to determine whether we we will be able to remove the cory. Charges/Coding Visit Charges Inpatient E&M: 90031 Subs Hosp L2
[2023-09-18] MEDS: 0.9% Saline Lock 10 ML Syringe IV (16:42)
[2023-09-18] MEDS: oxyCODONE 5 MG Tablet 10 MG PO (21:06)
[2023-09-18] MEDS: Senna/Docusate Sodium 1 Tablet 2 TABLET PO (21:07)
[2023-09-18 22:00] VITALS: BP 97/63; PULSE 77; RESP 18; TEMP 36.8; O2SAT 96
[2023-09-19] MEDS: Methocarbamol 500 MG Tablet PO (03:05)
[2023-09-19] MEDS: Acetaminophen 500 MG Tablet 1000 MG PO ×2 (03:10→20:09)
[2023-09-19] MEDS: oxyCODONE 5 MG Tablet PO ×3 (05:49→16:38)
[2023-09-19] MEDS: Enoxaparin 40 MG/0.4 ML Syringe SC (05:51)
[2023-09-19 05:55] LABS: Hemoglobin 7.7 g/dL (12.0-15.0); Mean Corp Hgb Conc 30.8 g/dL (32-36); Mean Corpuscular Volume 100.8 fL (81-99); Mean Platelet Vol. 7.8 fl (6.2-12.0); POSITIVE COUNT YES; RBC Distribution Width CV 13.8 % (11.6-14.6); Red Blood Count 2.48 M/mm3 (4.2-5.4); White Blood Count 13.2 K/mm3 (4.4-11.0)
[2023-09-19 06:01] LABS: Platelet Count 966 K/mm3 (150-450)
[2023-09-19 07:06] LABS: Scan Indicated on CBC? Y/N YES- FLAGS NOTED
[2023-09-19 07:53] VITALS: BP 123/69; PULSE 80; RESP 16; TEMP 36.7; O2SAT 98
[2023-09-19] MEDS: Multivitamins,Therapeutic Tablet 1 TABLET PO (08:18)
[2023-09-19] MEDS: Senna/Docusate Sodium 1 Tablet 2 TABLET PO ×2 (08:18→20:09)
--- NOTE | 2023-09-19 10:59 | CASEMGMT ---
Addendum entered by Kathleen Cowan 09/20/23 16:02: [facility] and [facility] accept. [facility] has no beds. [facility] is first choice. [facility] updated. SW spoke with pt and phoned brother to update. Original Note: Social Work IDT met with patient and friend, then brother via conference call for Team meeting. Discussed patient's progress in PT/OT/SN. Educated to Medicare approval of 16 days with DC 09/29. Pt has made great improvements from last week to this week, but pt did continue to agree, if pt cannot return home, to DC to SNF skilled until home. Pt and brother inquired about TCU. SW educated to skilled facility in [facility]. Pt prefers [facility] first, [facility] second and [facility] third. Brother and friend in agreement. SW placed referrals to [facility], [facility] and [facility] via [facility]. Will continue to follow. ReTeam next week. Kathleen Cowan, VICTORINO FLORESW
[2023-09-19 14:23] LABS: Pathologist Review Reviewed
[2023-09-19 19:45] VITALS: PULSE 85; RESP 16; O2SAT 95
[2023-09-19] MEDS: oxyCODONE 5 MG Tablet 10 MG PO (20:09)
[2023-09-19 22:00] VITALS: BP 97/60; PULSE 85; RESP 16; TEMP 36.3; O2SAT 95
[2023-09-20] MEDS: Methocarbamol 500 MG Tablet PO (00:23)
[2023-09-20] MEDS: 0.9% Saline Lock 10 ML Syringe IV (00:27)
--- NOTE | 2023-09-20 02:19 | NURSING ---
Reviewed and agree with Asuncion DONALDSON, documentation and assessment charting.
[2023-09-20] MEDS: oxyCODONE 5 MG Tablet PO ×3 (06:26→16:48)
[2023-09-20] MEDS: Acetaminophen 500 MG Tablet 1000 MG PO (06:28)
[2023-09-20] MEDS: Enoxaparin 40 MG/0.4 ML Syringe SC (06:32)
[2023-09-20 07:38] VITALS: BP 110/68; PULSE 71; RESP 18; TEMP 37.2; O2SAT 96
[2023-09-20] MEDS: Multivitamins,Therapeutic Tablet 1 TABLET PO (09:07)
[2023-09-20] MEDS: Senna/Docusate Sodium 1 Tablet 2 TABLET PO ×2 (09:08→21:19)
--- NOTE | 2023-09-20 11:12 | PCM.PROGNOTE ---
Subjective Subjective This is a late entry for 09/19/23. Angela was seen on team rounds yesterday. Her brother participated by phone. Afebrile VSS Maintaining appropriate oxygen saturation on RA Oral intake good for both fluids and nutrition. Discussed with nursing - no problems that need addressed. Has been incontinent of urine. Reviewed the PT/OT notes -she is making good progress with therapy. Medication list reviewed. Angela tells me that her hip is painful when she is up and bearing weight on it but she expects this. She is sleeping better at night and feels that the current pain regimen is adequate. All lab was personally reviewed. The white blood cell count is 13.2, up from 8.5 on 09/14/2023. Platelets are 966,000. Hemoglobin is improving and is up to 7.7. MCV is 100.8 and the RDW is increased. Her brother relates that she was always complaining of being extremely fatigued prior to her hip fracture and admission to the hospital. She had not seen a doctor for this. Angela denies lightheadedness, vertigo, CP, SOB at rest, SOB with exertion, cough, nausea, vomiting, abd pain, diarrhea, constipation, dysuria, calf pain and ankle swelling. She has the impression that the night nurses are upset with her about using the bedpan too much at night. She was continent at admission and now incontinent of urine.......because she is hesitant to call nursing because she thinks they are mad at her OR does she have a UTI? Objective Data Objective Data Vital Signs: Vital Signs Temp Pulse Resp BP Pulse Ox O2 Del Method 99 F 71 18 110/68 96 Room Air 09/20/23 07:38 09/20/23 07:38 09/20/23 07:38 09/20/23 07:38 09/20/23 07:38 09/20/23 07:38 Oxygen Delivery Method Room Air Weight: 141 lb 12.116 oz Body Mass Index (BMI) 22.8 Intake & Output: Intake and Output for Last 24 Hours 09/18/23 09/19/23 09/20/23 23:59 23:59 23:59 Intake Total 1960 / 1960 1360 / 1360 120 / 120 Output Total 250 / 250 260 / 260 200 / 200 Balance 1710 / 1710 1100 / 1100 -80 / -80 Lab / Micro Data 09/19/23 05:42 09/15/23 05:41 Labs: Laboratory Results - last 24 hr 09/19/23 05:42: Diff Path Review Reviewed Physical Exam Const alert, oriented x3 and no apparent distress Constitutional Narrative: Sitting in the recliner at the bedside appears comfortable. General Appearance: cooperative Eyes General Eye: normal appearance of both eyes Resp normal respiratory effort, normal air movement and clear to auscultation bilaterally Resp Narrative: No conversational dyspnea Effort and Inspection: Negative for tachypneic Cardio regular rate, regular rhythm and no gallops GI normal to inspection, nondistended, normoactive bowel sounds, soft to palpation and non-tender Extremity normal capillary refill, no joint enlargement, no calf tenderness and no pedal edema Skin no rashes or lesions noted Rashes: no rashes Wound Narrative: The incision is intact with no dehiscence, no carlitos-incisional erythema and no purulent discharge. There is still a small amount of swelling around the incision and in the dependent portion of the upper. Psych cooperative Psych Narrative: Seems that she is worried about people judging her. Maybe a little paranoid. Does not seem depressed or anxious. Makes good eye contact with me. Appearance: appropriate Attitude: No agitated Assessment & Plan Assessment/Plan (1) Debility: (2) Closed posterior wall fracture of left acetabulum: QUALIFIERS: Encounter type: subsequent encounter Fracture alignment: displaced (3) History of left hip hemiarthroplasty: (4) Osteoarthritis: QUALIFIERS: Osteoarthritis location: multiple joints Osteoarthritis type: primary Qualified Code(s): M15.9 - Polyosteoarthritis, unspecified (5) Depression: QUALIFIERS: Depression Type: reactive depression Qualified Code(s): F32.9 - Major depressive disorder, single episode, unspecified (6) Hypertension: QUALIFIERS: Hypertension type: primary hypertension Qualified Code(s): I10 - Essential (primary) hypertension (7) Hyponatremia: (8) Dehydration: (9) Acute blood loss anemia: (10) Thrombocytosis: (11) Urinary incontinence: PLAN: Plan 1. Continue therapy, she is making excellent progress 2. Straight cath today for a urine sample and send for complete UA. If she has pyuria we will start an antibiotic empirically and order urine culture. 3. I asked the charge nurse to talk to her about some difficulty she has been having at night and try to straighten things out for her. 4. Will discuss with the geriatric social work professor also because I think she has some problems with poor self-esteem and feeling like she is being judged.
--- NOTE | 2023-09-20 15:28 | CHAPLAIN ---
Type of Pastoral Visit ___ Initial Visit _x__ Follow-up Visit ___ On-call Visit ___ General Patient Visit ___ Spiritual Assessment ___ Family Conference ___ Bereavement ___ Rapid Response ___ Code Blue ___ Other (describe below) Pastoral Care Referral From _x__ Patient ___ Family ___ Nurse ___ Physician ___ Interlocking And Signal Mechanic ___ Dock Worker ___ Other (describe below) Sacrament/Intervention _x__ Active listening ___ Anointing ___ Jain ___ Bereavement ___ Communion _x__ Felisha exploration ___ _x__ Life review _x__ Prayer ___ Reconciliation ___ Sacrament of Sick _x__ Supportive presence ___ Wedding ___ Other (describe below) Pastoral Comments patient gives her story about fall and damage done; pt is working on gaining strength to have another hip surgery; pt admits to some anxiety about her situation and the setback that this has caused; 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
[2023-09-20 21:00] VITALS: BP 114/68; PULSE 72; PULSE 76; RESP 16; TEMP 36.3; O2SAT 100
[2023-09-20] MEDS: oxyCODONE 5 MG Tablet 10 MG PO (21:19)
[2023-09-20] MEDS: Polyethylene Glycol 3350 17 GM PACKET PO (21:22)
[2023-09-20 21:32] LABS: Mucous, Urine 0 SEEN /hpf (<or=2+); Red Blood Cells-Urine 0 SEEN /hpf (0-5); Squamous Epithelial Cells - UA 0 SEEN /hpf (5-10)
[2023-09-20 21:40] LABS: Color, Urine Yellow (Yellow); Glucose, Dipstick Normal (Normal); Ketone-Dipstick Negative (Negative); Leukocyte Esterase-Dipstick 500 /ul (Negative); Nitrite-Dipstick Negative (Negative); Occult Blood-Urine 10 /ul (Negative); Protein-Dipstick Negative (Negative); Specific Gravity, Urine 1.005 (1.002-1.030); Urine Bilirubin Dipstick Negative (Negative); Urine Clarity Clear (Clear); Urine Urobilinogen Normal (Normal)
[2023-09-20 21:48] LABS: Bacteria RARE /hpf (None Seen); White Blood Cells 5-10 SEEN /hpf (0-5)
--- NOTE | 2023-09-20 23:04 | NURSING ---
Urine sample obtained earlier by jaime sebastian. UA completed. Call to lab to run a culture on as well. Will continue to monitor.
[2023-09-21] MEDS: Acetaminophen 500 MG Tablet 1000 MG PO ×2 (06:05→15:32)
[2023-09-21] MEDS: Enoxaparin 40 MG/0.4 ML Syringe SC (06:05)
[2023-09-21] MEDS: Methocarbamol 500 MG Tablet PO ×2 (06:07→20:46)
[2023-09-21] MEDS: 0.9% Saline Lock 10 ML Syringe IV (06:07)
[2023-09-21 07:48] VITALS: BP 104/68; PULSE 68; RESP 16; TEMP 36.9; O2SAT 93
[2023-09-21] MEDS: Senna/Docusate Sodium 1 Tablet 2 TABLET PO ×2 (09:23→20:46)
[2023-09-21] MEDS: Multivitamins,Therapeutic Tablet 1 TABLET PO (09:23)
[2023-09-21 10:00] VITALS: O2SAT 93
[2023-09-21] MEDS: oxyCODONE 5 MG Tablet PO ×2 (11:06→16:01)
[2023-09-21 20:35] VITALS: BP 122/76; PULSE 74; RESP 15; TEMP 36.4; O2SAT 96
[2023-09-21] MEDS: oxyCODONE 5 MG Tablet 10 MG PO (20:46)
[2023-09-22] MEDS: Enoxaparin 40 MG/0.4 ML Syringe SC (04:55)
[2023-09-22] MEDS: Methocarbamol 500 MG Tablet PO ×2 (04:56→22:04)
[2023-09-22] MEDS: oxyCODONE 5 MG Tablet PO ×3 (04:56→16:08)
[2023-09-22 06:00] VITALS: BMI 24.9
[2023-09-22 08:42] VITALS: BP 122/75; PULSE 71; RESP 16; TEMP 36.8; O2SAT 98
[2023-09-22] MEDS: Senna/Docusate Sodium 1 Tablet 2 TABLET PO ×2 (09:25→22:03)
[2023-09-22] MEDS: Multivitamins,Therapeutic Tablet 1 TABLET PO (09:25)
[2023-09-22] MEDS: Acetaminophen 500 MG Tablet 1000 MG PO (09:30)
[2023-09-22] MEDS: 0.9% Saline Lock 10 ML Syringe IV (11:08)
--- NOTE | 2023-09-22 15:31 | PN_ITS ---
Subjective Subjective Day #1 Cipro Afebrile VSS Maintaining appropriate oxygen saturation on RA Oral intake -she is eating 75 to 100% of her meals and has adequate fluid intake. She has lost about 5 lbs since admission. The 141 is not accurate. Discussed with nursing - no problems that need addressed Reviewed the PT/OT/ST notes Medication list reviewed. Urine culture grew 25-50,000 colonies of an ESBL presumptive E. coli. It is resistant to ampicillin, cefazolin, ceftriaxone and intermediately sensitive to Augmentin. It is sensitive to Fluoroquinolones, Bactrim and nitrofurantoin. Madhavi tells me that her mother was allergic to Bactrim. Has had a colonoscopy in the past but, it was years ago. Dad had polyps. 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 I reviewed the admitting lab from then hip fracture and the HGB was 11.9 at admission. She had a pelvic hematoma. Angela denies flank pain, nausea/vomiting/epigastric pain, lightheadedness, cephalgia and calf pain. Objective Data Objective Data Vital Signs: Vital Signs Temp Pulse Resp BP Pulse Ox O2 Del Method 98.2 F 71 16 122/75 H 98 Room Air 09/22/23 08:42 09/22/23 08:42 09/22/23 08:42 09/22/23 08:42 09/22/23 08:42 09/22/23 08:42 Oxygen Delivery Method Room Air Weight: 154 lb 15.759 oz Body Mass Index (BMI) 24.9 Intake & Output: Intake and Output for Last 24 Hours 09/20/23 09/21/23 09/22/23 23:59 23:59 23:59 Intake Total 660 / 660 1480 / 1480 920 / 920 Output Total 625 / 625 350 / 350 Balance 35 / 35 1130 / 1130 920 / 920 Lab / Micro Data 09/22/23 16:40 09/15/23 05:41 Micro: Microbiology 09/20/23 21:00 Urine, Catheterized Urine Culture - Preliminary Presumptive E. coli Physical Exam Const alert, oriented x3 and no apparent distress Constitutional Narrative: somewhat pale General Appearance: cooperative Eyes Eyes Narrative: Palpebral conjunctiva is pale Resp normal respiratory effort, normal air movement and clear to auscultation bilaterally Effort and Inspection: Negative for tachypneic Cardio regular rate, regular rhythm and no gallops GI normal to inspection, nondistended, normoactive bowel sounds, soft to palpation and non-tender GI Narrative: No epigastric pain with palpation. Skin General Skin Exam: no breakdown Rashes: no rashes Wound Narrative: Incision is healing well with no dehiscence, no purulent discharge and no carlitos- incisional erythema. Psych thought process normal and cooperative Appearance: appropriate Attitude: No agitated Assessment & Plan Assessment/Plan (1) Debility: (2) Closed posterior wall fracture of left acetabulum: QUALIFIERS: Encounter type: subsequent encounter Fracture alignment: displaced (3) History of left hip hemiarthroplasty: (4) Osteoarthritis: QUALIFIERS: Osteoarthritis location: multiple joints Osteoarthritis type: primary Qualified Code(s): M15.9 - Polyosteoarthritis, unspecified (5) Depression: QUALIFIERS: Depression Type: reactive depression Qualified Code(s): F32.9 - Major depressive disorder, single episode, unspecified (6) Hypertension: QUALIFIERS: Hypertension type: primary hypertension Qualified Code(s): I10 - Essential (primary) hypertension (7) Hyponatremia: (8) Dehydration: (9) Acute blood loss anemia: (10) Thrombocytosis: (11) Urinary incontinence: PLAN: more likely than not due to a UTI (12) Chronic fatigue: PLAN: etiology (13) Leukocytosis: (14) Cystitis: PLAN: E. coli ESBL PLAN: Plan 1. Continue therapy 2. Started Cipro 500 mg today and then 250 mg twice daily for a total of 7 days. 3. I feel strongly that the thrombocytosis is reactive and secondary to trauma, infection and stress. 4. check iron studies, B12 and folate. TSH was normal this admission. 5. Hemoccult stool. 6. If the hemoccult is + will recommend an OP colonoscopy since her father had polyps. 7. Will have additional discussion with her if the labs are unremarkable about treating for anxiety/depression. Charges/Coding Visit Charges Inpatient E&M: 50487 Subs Hosp L2
[2023-09-22 16:58] LABS: Hematocrit 25.6 % (37-47); Hemoglobin 7.9 g/dL (12.0-15.0); POSITIVE COUNT YES; RET-HE 29.7 pg (30-35); Reticulocyte Count 3.31 % (0.5-1.5)
[2023-09-22 17:03] LABS: Platelet Count 871 K/mm3 (150-450)
[2023-09-22 17:14] LABS: Vitamin B12 390 pg/mL (211-911)
[2023-09-22 17:23] LABS: Ferritin 176 ng/mL (8-252); Iron 25 ug/dL (50-170); Iron Binding Capacity,Total 300 ug/dL (250-450); PERCENT IRON SATURATION 8.3 % (15.0-55.0)
[2023-09-22 22:00] VITALS: BP 119/77; PULSE 73; RESP 18; TEMP 37.2; O2SAT 97; O2SAT 98
[2023-09-22] MEDS: oxyCODONE 5 MG Tablet 10 MG PO (22:00)
[2023-09-22] MEDS: Ciprofloxacin 500 MG Tablet PO (22:03)
[2023-09-23] MEDS: Acetaminophen 500 MG Tablet 1000 MG PO ×2 (02:41→18:53)
[2023-09-23] MEDS: Enoxaparin 40 MG/0.4 ML Syringe SC (05:20)
[2023-09-23] MEDS: oxyCODONE 5 MG Tablet PO ×3 (05:20→16:16)
[2023-09-23] MEDS: Methocarbamol 500 MG Tablet PO ×2 (05:25→21:21)
[2023-09-23 08:00] VITALS: BP 122/80; PULSE 63; RESP 17; TEMP 36.7; O2SAT 98
[2023-09-23] MEDS: Multivitamins,Therapeutic Tablet 1 TABLET PO (08:09)
[2023-09-23] MEDS: Senna/Docusate Sodium 1 Tablet 2 TABLET PO ×2 (08:10→21:22)
[2023-09-23] MEDS: Ciprofloxacin 250 MG Tablet PO ×2 (09:14→21:23)
[2023-09-23] MEDS: 0.9% Saline Lock 10 ML Syringe IV (16:23)
[2023-09-23 19:40] VITALS: BP 125/76; PULSE 72; RESP 14; TEMP 36.9; O2SAT 98
[2023-09-23] MEDS: oxyCODONE 5 MG Tablet 10 MG PO (21:21)
[2023-09-23 22:00] VITALS: O2SAT 96
--- NOTE | 2023-09-24 03:23 | NURSING ---
Reviewed and agree with Romeo DONALDSON, documentation and assessment charting.
[2023-09-24] MEDS: Enoxaparin 40 MG/0.4 ML Syringe SC (04:12)
[2023-09-24] MEDS: oxyCODONE 5 MG Tablet PO ×3 (04:13→15:39)
[2023-09-24] MEDS: Methocarbamol 500 MG Tablet PO ×2 (04:17→17:43)
[2023-09-24 08:00] VITALS: BP 113/63; PULSE 75; RESP 16; TEMP 36.5; O2SAT 98
[2023-09-24] MEDS: Acetaminophen 500 MG Tablet 1000 MG PO (08:00)
[2023-09-24] MEDS: Multivitamins,Therapeutic Tablet 1 TABLET PO (08:00)
[2023-09-24] MEDS: Ciprofloxacin 250 MG Tablet PO ×2 (09:23→21:31)
[2023-09-24 19:02] VITALS: BP 108/66; PULSE 74; RESP 18; TEMP 36.8; O2SAT 94
[2023-09-24] MEDS: Senna/Docusate Sodium 1 Tablet 2 TABLET PO (21:31)
[2023-09-24] MEDS: oxyCODONE 5 MG Tablet 10 MG PO (21:31)
[2023-09-24 22:00] VITALS: PULSE 74; O2SAT 97
[2023-09-25] MEDS: oxyCODONE 5 MG Tablet PO ×3 (04:11→17:51)
[2023-09-25] MEDS: Enoxaparin 40 MG/0.4 ML Syringe SC (04:11)
[2023-09-25 07:25] VITALS: BP 131/68; PULSE 79; RESP 16; TEMP 37.1; O2SAT 97
[2023-09-25] MEDS: Senna/Docusate Sodium 1 Tablet 2 TABLET PO (07:55)
[2023-09-25] MEDS: Multivitamins,Therapeutic Tablet 1 TABLET PO (07:55)
[2023-09-25] MEDS: Ciprofloxacin 250 MG Tablet PO ×2 (07:55→21:18)
[2023-09-25] MEDS: Methocarbamol 500 MG Tablet PO ×2 (10:37→21:24)
--- NOTE | 2023-09-25 12:05 | PCM.PROGNOTE ---
Subjective Subjective Day #3 Cipro for urinary tract infection. ESBL E. coli Madhavi was seen on team rounds today. Her brother Keenan was unable to participate by phone today but, he will call the SW when he gets off work at 3:30 today. Afebrile VSS Maintaining appropriate oxygen saturation on RA Oral intake is good for both fluids and food. Discussed with nursing - she is irritable at times per therapy and nursing and short tempered. Gets frustrated easily and had a meltdown with PT today. Reviewed the PT/OT notes - making good progress. Medication list reviewed. Iron studies showed a low serum iron of 25, low iron saturation at 8.3 and a ferritin of 176. Reticulocyte count is elevated which is appropriate because she is anemic. B12 and folate were normal. Stool is heme-negative. Madhavi and I had a talk about how she is feeling. 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 This happened 1 year ago and since then she has not been motivated to do anything. She has gotten very weak because primarily she has been sedentary. She admits to having problems at night sleeping because she has lots of thoughts going through her head. She is trying to repurpose herself to do something meaningful to her that she will enjoy. Neither she nor her brother have had children. She also admits to feeling overwhelmed and stuck . When her she became very depressed and was placed on an antidepressant but it made her feel worse and she discontinued this. She has been very motivated in therapy and has made a lot of improvement. She has been open with me and she is able to articulate what has been going on with her. She is agreeable to starting an antidepressant and we discussed starting Remeron tonight. 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 I also recommended counselling to help with coping skills and planning. D/W the SW the plan for tx. Objective Data Objective Data Vital Signs: Vital Signs Temp Pulse Resp BP Pulse Ox O2 Del Method 98.8 F 79 16 131/68 H 97 Room Air 09/25/23 07:25 09/25/23 07:25 09/25/23 07:25 09/25/23 07:25 09/25/23 07:25 09/25/23 07:25 Oxygen Delivery Method Room Air Weight: 154 lb 15.759 oz Body Mass Index (BMI) 24.9 Intake & Output: Intake and Output for Last 24 Hours 09/23/23 09/24/23 09/25/23 23:59 23:59 23:59 Intake Total 790 / 990 3630 / 3630 340 / 340 Output Total 750 / 750 Balance 40 / 240 3630 / 3630 340 / 340 Lab / Micro Data 09/22/23 16:40 09/15/23 05:41 Micro: Microbiology 09/24/23 18:30 Stool Stool Occult Blood (AGAPITO) - Final 09/20/23 21:00 Urine, Catheterized Urine Culture - Final ESBL Escherichia coli Physical Exam Const alert, oriented x3 and no apparent distress Constitutional Narrative: somewhat pale General Appearance: cooperative Eyes Eyes Narrative: Palpebral conjunctiva is pale Resp normal respiratory effort, normal air movement and clear to auscultation bilaterally Effort and Inspection: Negative for tachypneic Cardio regular rate, regular rhythm and no gallops GI normal to inspection, nondistended, normoactive bowel sounds, soft to palpation and non-tender GI Narrative: No epigastric pain with palpation. Skin General Skin Exam: no breakdown Rashes: no rashes Wound Narrative: Incision is healing well with no dehiscence, no purulent discharge and no carlitos-incisional erythema. Psych thought process normal and cooperative Appearance: appropriate Attitude: No agitated Assessment & Plan Assessment/Plan (1) Debility: (2) Closed posterior wall fracture of left acetabulum: QUALIFIERS: Encounter type: subsequent encounter Fracture alignment: displaced (3) History of left hip hemiarthroplasty: (4) Osteoarthritis: QUALIFIERS: Osteoarthritis location: multiple joints Osteoarthritis type: primary Qualified Code(s): M15.9 - Polyosteoarthritis, unspecified (5) Depression: QUALIFIERS: Depression Type: reactive depression Qualified Code(s): F32.9 - Major depressive disorder, single episode, unspecified PLAN: Mixed depression/anxiety. She has a hx of depression.....when her . (6) Hypertension: QUALIFIERS: Hypertension type: primary hypertension Qualified Code(s): I10 - Essential (primary) hypertension (7) Hyponatremia: (8) Dehydration: (9) Acute blood loss anemia: (10) Thrombocytosis: (11) Urinary incontinence: QUALIFIERS: Urinary Incontinence type: urge incontinence Qualified Code(s): N39.41 - Urge incontinence (12) Chronic fatigue: PLAN: More likely than not due to untreated depression. (13) Leukocytosis: QUALIFIERS: Leukocytosis type: bandemia Qualified Code(s): D72.825 - Bandemia PLAN: Due to urinary tract infection due to E. coli ESBL. (14) Cystitis: (15) Iron deficiency: PLAN: Plan 1. Continue therapy 2. Continue Cipro for total of 14 doses. 3. Change oxycodone to every 4 hours as needed pain during the day but continue 10 mg at at bedtime. 4. Address her behavior with staff (rude, abrupt, dismissive and yelling). She is not on a medication for depression so will discuss this with her. Will also discuss with case management. She is agreeable to starting an antidepressant and will start Remeron 15 mg Q HS. 5. Recheck CBC and a BMP on . Will also check a T4. TSH is 0.62 which is normal but she complains of chronic fatigue. 6. Ferrous sulfate 325 mg p.o. daily with lunch 7. Mylanta 15 cc p.o. every 6 hours as needed reflux/dyspepsia.
--- NOTE | 2023-09-25 13:22 | CASEMGMT ---
Social Work IDT met with patient for Team meeting. Pt reports brother is calling this worker after work for update. Discussed patient's progress in PT/OT/SN. Confirmed plan for DC is 09/29 to TCU under Medicare. SW will assist with DC planning on TCU. No other issues noted. Plan: DC 09/29 to TCU, skilled Kathleen Cowan, [employer]
[2023-09-25] MEDS: Acetaminophen 500 MG Tablet 1000 MG PO (14:39)
[2023-09-25] MEDS: oxyCODONE 5 MG Tablet 10 MG PO (21:18)
[2023-09-25] MEDS: Mirtazapine 15 MG Tablet PO (21:24)
[2023-09-25 21:25] VITALS: PULSE 72; RESP 17
[2023-09-25 22:00] VITALS: BP 140/82; PULSE 72; RESP 17; TEMP 36.7; O2SAT 96
[2023-09-26] MEDS: Methocarbamol 500 MG Tablet PO ×3 (06:25→22:59)
[2023-09-26] MEDS: oxyCODONE 5 MG Tablet PO (06:25)
[2023-09-26] MEDS: Acetaminophen 500 MG Tablet 1000 MG PO ×2 (06:25→14:57)
[2023-09-26] MEDS: Enoxaparin 40 MG/0.4 ML Syringe SC (06:26)
[2023-09-26 07:30] VITALS: BP 116/71; PULSE 66; RESP 18; TEMP 36.4; O2SAT 94
[2023-09-26] MEDS: Multivitamins,Therapeutic Tablet 1 TABLET PO (07:44)
[2023-09-26] MEDS: Senna/Docusate Sodium 1 Tablet 2 TABLET PO ×2 (07:44→19:49)
[2023-09-26] MEDS: Ciprofloxacin 250 MG Tablet PO ×2 (07:44→19:49)
[2023-09-26 10:23] LABS: Pathologist Review Reviewed
[2023-09-26] MEDS: Ferrous Sulfate 325 MG Tablet PO (11:06)
[2023-09-26] MEDS: Polyethylene Glycol 3350 17 GM PACKET PO (16:58)
--- NOTE | 2023-09-26 19:06 | PCM.PROGNOTE ---
Subjective Subjective Afebrile VSS Maintaining appropriate oxygen saturation on RA Oral intake is good Discussed with nursing - no problems that need addressed Reviewed the PT/OT/ST notes Medication list reviewed. She had her first dose of Remeron last night and she tells me that she slept much better. She has had no adverse reactions to this medication but it was just started last night. She denies dysuria, urinary incontinence, abdominal pain, flank pain, nausea/vomiting, chest pain, shortness of breath, calf tenderness. Objective Data Objective Data Vital Signs: Vital Signs Temp Pulse Resp BP Pulse Ox O2 Del Method 97.5 F L 66 18 116/71 94 Room Air 09/26/23 07:30 09/26/23 07:30 09/26/23 07:30 09/26/23 07:30 09/26/23 07:30 09/26/23 07:30 Oxygen Delivery Method Room Air Weight: 154 lb 15.759 oz Body Mass Index (BMI) 24.9 Intake & Output: Intake and Output for Last 24 Hours 09/24/23 09/25/23 09/26/23 23:59 23:59 23:59 Intake Total 3630 / 3630 1490 / 1490 1760 / 1760 Balance 3630 / 3630 1490 / 1490 1760 / 1760 Lab / Micro Data 09/22/23 16:40 09/15/23 05:41 Labs: Laboratory Results - last 24 hr 09/22/23 16:40: Diff Path Review Reviewed Micro: Microbiology 09/24/23 18:30 Stool Stool Occult Blood (AGAPITO) - Final 09/20/23 21:00 Urine, Catheterized Urine Culture - Final ESBL Escherichia coli Physical Exam Const alert, oriented x3 and no apparent distress Constitutional Narrative: somewhat pale General Appearance: cooperative Eyes Eyes Narrative: Palpebral conjunctiva is pale Resp normal respiratory effort, normal air movement and clear to auscultation bilaterally Effort and Inspection: Negative for tachypneic Cardio regular rate, regular rhythm and no gallops GI normal to inspection, nondistended, normoactive bowel sounds, soft to palpation and non-tender GI Narrative: No epigastric pain with palpation. Skin General Skin Exam: no breakdown Rashes: no rashes Wound Narrative: Incision is healing well with no dehiscence, no purulent discharge and no carlitos-incisional erythema. Psych thought process normal and cooperative Appearance: appropriate Attitude: No agitated Assessment & Plan Assessment/Plan (1) Debility: (2) Closed posterior wall fracture of left acetabulum: QUALIFIERS: Encounter type: subsequent encounter Fracture alignment: displaced (3) History of left hip hemiarthroplasty: (4) Osteoarthritis: QUALIFIERS: Osteoarthritis location: multiple joints Osteoarthritis type: primary Qualified Code(s): M15.9 - Polyosteoarthritis, unspecified (5) Depression: QUALIFIERS: Depression Type: reactive depression Qualified Code(s): F32.9 - Major depressive disorder, single episode, unspecified (6) Hypertension: QUALIFIERS: Hypertension type: primary hypertension Qualified Code(s): I10 - Essential (primary) hypertension (7) Hyponatremia: (8) Dehydration: (9) Acute blood loss anemia: (10) Thrombocytosis: (11) Urinary incontinence: QUALIFIERS: Urinary Incontinence type: urge incontinence Qualified Code(s): N39.41 - Urge incontinence PLAN: more likely than not due to a UTI (12) Chronic fatigue: PLAN: etiology (13) Leukocytosis: QUALIFIERS: Leukocytosis type: bandemia Qualified Code(s): D72.825 - Bandemia (14) Cystitis: PLAN: Plan 1. Continue therapy 2. Lab ordered for 3. Continue Remeron 15 mg p.o. nightly. Recommend psychotherapy at discharge for counseling. 4. needs a BMD at some point after DC to assess for osteoporosis. Vitamin D level is WNL. Charges/Coding Visit Charges Inpatient E&M: 74029 [facility] L[facility]
[2023-09-26 19:35] VITALS: PULSE 86; RESP 18; O2SAT 97
[2023-09-26] MEDS: oxyCODONE 5 MG Tablet 10 MG PO (19:47)
[2023-09-26 20:03] VITALS: BP 110/72; PULSE 86; RESP 18; TEMP 36.8; O2SAT 97
[2023-09-26] MEDS: Mirtazapine 15 MG Tablet PO (22:01)
--- NOTE | 2023-09-27 00:37 | NURSING ---
Polar care removed from hip and ice pack from lt knee removed per pt request.
[2023-09-27] MEDS: Acetaminophen 500 MG Tablet 1000 MG PO ×2 (06:13→17:16)
[2023-09-27] MEDS: Enoxaparin 40 MG/0.4 ML Syringe SC (06:13)
[2023-09-27] MEDS: oxyCODONE 5 MG Tablet PO (06:13)
[2023-09-27] MEDS: Methocarbamol 500 MG Tablet PO ×2 (06:14→20:51)
[2023-09-27] MEDS: Senna/Docusate Sodium 1 Tablet 2 TABLET PO ×2 (08:44→21:52)
[2023-09-27] MEDS: Ciprofloxacin 250 MG Tablet PO ×2 (08:45→21:52)
[2023-09-27] MEDS: Multivitamins,Therapeutic Tablet 1 TABLET PO (08:45)
[2023-09-27 09:25] VITALS: BP 111/64; PULSE 74; RESP 14; TEMP 37.5; O2SAT 97
[2023-09-27] MEDS: Ferrous Sulfate 325 MG Tablet PO (11:53)
[2023-09-27] MEDS: Magnesium Hydroxide 30 ML UDC PO (11:57)
[2023-09-27 20:32] VITALS: BP 142/82; PULSE 81; RESP 18; TEMP 36.2; O2SAT 94
[2023-09-27 20:34] VITALS: RESP 18; O2SAT 94
[2023-09-27] MEDS: Mirtazapine 15 MG Tablet PO (21:52)
[2023-09-27] MEDS: oxyCODONE 5 MG Tablet 10 MG PO (21:53)
[2023-09-28] MEDS: Acetaminophen 500 MG Tablet 1000 MG PO ×2 (02:36→11:37)
[2023-09-28 02:42] VITALS: BP 111/70; PULSE 63; RESP 20; TEMP 37.2
[2023-09-28] MEDS: oxyCODONE 5 MG Tablet PO (03:56)
[2023-09-28] MEDS: Enoxaparin 40 MG/0.4 ML Syringe SC (05:54)
[2023-09-28 06:03] LABS: Absolute Lymphocyte Count 2.11 X10^3/uL (0.83-4.51); Absolute Neutrophil Count 3.5 X10^3/uL (2.0-7.7); Basophil# 0.05 X10^3/uL; Basophil% 0.7 % (0-1); Eosinophil# 0.42 X10^3/uL; Eosinophils% 6.1 % (0-5); Hematocrit 25.6 % (37-47); Hemoglobin 7.9 g/dL (12.0-15.0); Lymphocyte # 2.11 X10^3/ul (0.83-4.51); Lymphocyte % 30.5 % (19-41); Mean Corp Hgb Conc 30.9 g/dL (32-36); Mean Corpuscular Hgb 30.6 pg (27.0-32.0); Mean Corpuscular Volume 99.2 fL (81-99); Monocyte# 0.84 X10^3/uL; Monocyte% 12.1 % (0-10); NRBC Flagged by Analyzer 0 % (0-5); Neutrophil # 3.47 X10^3/uL (2.7-7.7); Neutrophil % 50.2 % (47-70); Platelet Count 612 K/mm3 (150-450); RBC Distribution Width CV 13.8 % (11.6-14.6); RBC Distribution Width SD 50.1 fl (35.1-43.9); Red Blood Count 2.58 M/mm3 (4.2-5.4); White Blood Count 6.9 K/mm3 (4.4-11.0)
[2023-09-28 06:30] LABS: Anion Gap 5 (5-15); BUN 17 mg/dL (7-18); BUN/Creat Ratio 24.9 RATIO (10-20); Calcium,Total 8.7 mg/dL (8.5-10.1); Chloride 106 mmol/L (98-107); Creatinine, Serum 0.68 mg/dL (0.55-1.02); EST Glomerular Filtration Rate 91 mL/min (>60); Est Glom Filt Rate - Afr Amer 110 mL/min (>60); Estimated Creatinine Clearance 63.88 ml/min; Glucose 85 mg/dL (74-106); Potassium 4.2 mmol/L (3.5-5.1); Sodium Level 138 mmol/L (136-145)
[2023-09-28 06:54] VITALS: BP 111/70; PULSE 63; RESP 20; TEMP 37.2; O2SAT 96
[2023-09-28] MEDS: Senna/Docusate Sodium 1 Tablet 2 TABLET PO ×2 (08:01→21:19)
[2023-09-28] MEDS: Ciprofloxacin 250 MG Tablet PO ×2 (08:01→21:19)
[2023-09-28] MEDS: Multivitamins,Therapeutic Tablet 1 TABLET PO (08:01)
--- NOTE | 2023-09-28 11:14 | PN_ITS ---
Subjective Subjective Afebrile VSS Maintaining appropriate oxygen saturation on RA Oral intake is [] Discussed with nursing - no problems that need addressed Reviewed the PT/OT/ST notes Medication list reviewed. All lab drawn this AM was personally reviewed. White blood count is normal. Hemoglobin is stable at 7.9. Platelet count is down to 612,000 from 966,000 on 09/19/2023. She is iron deficient and the HGB is not improving. Continues to c/o fatigue. Tells me pain is adequately controlled. She continues to sleep well at night. Objective Data Objective Data Vital Signs: Vital Signs Temp Pulse Resp BP Pulse Ox O2 Del Method 98.9 F 63 20 H 111/70 96 Room Air 09/28/23 06:54 09/28/23 06:54 09/28/23 06:54 09/28/23 06:54 09/28/23 06:54 09/28/23 06:54 Oxygen Delivery Method Room Air Weight: 154 lb 15.759 oz Body Mass Index (BMI) 24.9 Intake & Output: Intake and Output for Last 24 Hours 09/26/23 09/27/23 09/28/23 23:59 23:59 23:59 Intake Total 2210 / 2210 1700 / 1700 400 / 400 Balance 2210 / 2210 1700 / 1700 400 / 400 Lab / Micro Data 09/28/23 05:31 09/28/23 05:31 Labs: Laboratory Results - last 24 hr 09/28/23 05:31: WBC 6.9, RBC 2.58 L, Hgb 7.9 L, Hct 25.6 L, MCV 99.2 H, MCH 30.6, MCHC 30.9 L, RDW Std Deviation 50.1 H, RDW Coeff of Kindra 13.8, Plt Count 612 H, MPV 8.0, Immature Gran % (Auto) 0.400, Neut % (Auto) 50.2, Lymph % (Auto) 30.5, [place] % (Auto) 12.1 H, Eos % (Auto) 6.1 H, Baso % (Auto) 0.7, Absolute Neuts (auto) 3.5, Absolute Lymphs (auto) 2.11, Nucleated RBC % 0, Sodium 138, Potassium 4.2, Chloride 106, Carbon Dioxide 27.0, Anion Gap 5, BUN 17, Creatinine 0.68, Estim Creat Clear Calc 63.88, Est GFR (MDRD) Af Amer 110, Est GFR (MDRD) Non-Af 91, BUN/Creatinine Ratio 24.9 H, Glucose 85, Calcium 8.7 Micro: Microbiology 09/24/23 18:30 Stool Stool Occult Blood (AGAPITO) - Final 09/20/23 21:00 Urine, Catheterized Urine Culture - Final ESBL Escherichia coli Physical Exam Const alert, oriented x3 and no apparent distress General Appearance: cooperative HEENT moist oral mucous membranes Resp clear to auscultation bilaterally Cardio regular rate, regular rhythm and no gallops GI normal to inspection, nondistended, normoactive bowel sounds, soft to palpation and non-tender Extremity no calf tenderness General Extremity: Negative for edema Skin General Skin Exam: no breakdown Rashes: no rashes Wound Narrative: Incision is intact and without erythema in the carlitos-incisional area. No discharge from the incision. Neuro CN's II-XII intact bilaterally and no focal motor deficits Assessment & Plan Assessment/Plan (1) Debility: (2) History of left hip hemiarthroplasty: (3) Closed posterior wall fracture of left acetabulum: QUALIFIERS: Encounter type: subsequent encounter Fracture alignm ent: displaced Fracture healing: with routine healing Qualified Code(s): S32.422D - Displaced fracture of posterior wall of left acetabulum, subsequent encounter for fracture with routine healing (4) Depression: QUALIFIERS: Depression Type: reactive depression Qualified Code(s): F32.9 - Major depressive disorder, single episode, unspecified (5) Acute blood loss anemia: (6) Iron deficiency: PLAN: Plan 1. Continue therapy 2. Transfer to transitional care tomorrow for additional strengthening/rehabilitation prior to returning home 3. Hold oral iron for now start iron sucrose 200 mg IV daily x 3 days and then resume oral iron. Stool is heme negative. 4. tolerating the Remeron without side effect and she is sleeping better at night. Charges/Coding Visit Charges Inpatient E&M: 40116 Subs Hosp L1
[2023-09-28] MEDS: Methocarbamol 500 MG Tablet PO ×2 (11:38→21:19)
[2023-09-28] MEDS: Iron Sucrose Complex 200 MG in 0.9% Normal Saline (100mL Bag) 100 ML 220 MG IV (14:38)
[2023-09-28] MEDS: 0.9% Normal Saline (250mL Bag) 250 ML 15 ML IV (14:38)
[2023-09-28] MEDS: 0.9% Saline Lock 10 ML Syringe IV ×2 (14:38→21:18)
--- NOTE | 2023-09-28 15:48 | PCM.TXEXTCAR ---
Diet Diet Order/Speech Therapy: 09/13/23 13:58 Diet: Regular - General Diet Comments: whole milk w/ meals Routine Orders/Code Status Enema Type: Fleetz Enema Frequency: Daily PRN Suppository Type: Dulcolax 10mg Suppository Frequency: Daily PRN O2 Liters per Minute: 1-2 O2 Frequency: PRN Keep PO Greater than or Equal to (%): 90 Routine Lab Work: - ( 10/04/23) Code Status: Full Code Wound(s) L hip: Wound Type: Surgical Incision Suggestions for Active Care Positions to Avoid: No prolonged sitting.....up and ambulate once an hour while awake. Therapies Weight Bearing: Full weight bearing Extremity Affected:: Left Lower Physical Therapy: Eval and Treat Occupational Therapy: Eval and Treat Problem/Diagnosis (1) Debility: Status: Acute Code(s): R53.81 - Other malaise Plan: Transfer to TCU for additional strengthening/rehabilitation prior to returning home Comment: Due to L periprosthetic hip fracture secondary to fall. (2) Closed posterior wall fracture of left acetabulum: Status: Acute Code(s): S32.422A - Displaced fracture of posterior wall of left acetabulum, initial encounter for closed fracture (3) History of left hip hemiarthroplasty: Status: Acute Code(s): Z96.642 - Presence of left artificial hip joint Comment: 09/05/[address] Link Woodall at [facility]. (4) Acute blood loss anemia: Status: Acute Code(s): D62 - Acute posthemorrhagic anemia Plan: Likely due to pelvic hematoma and surgery. HGB was 11.9 prior to fall/fracture/ORIF. (5) Iron deficiency: Status: Acute Code(s): E61.1 - Iron deficiency Comment: Hemoccult stool was negative. (6) Thrombocytosis: Status: Acute Code(s): D75.839 - Thrombocytosis, unspecified Plan: Reactive due to trauma/surgery/UTI/ iron deficiency and anemia. PLT's down to 622,000 (from 966,000) prior to DC from Acute rehab. (7) Dehydration: Status: Resolved Code(s): E86.0 - Dehydration (8) Hyponatremia: Status: Resolved Code(s): E87.1 - Hypo-osmolality and hyponatremia (9) Urinary incontinence: Status: Acute Code(s): R32 - Unspecified urinary incontinence Plan: Resolved with tx of UTI. (10) Cystitis: Status: Resolved Code(s): N30.90 - Cystitis, unspecified without hematuria Plan: Finish the 7-day course of ciprofloxacin. Comment: Secondary to E. coli ESBL (11) Chronic fatigue: Status: Chronic Code(s): R53.82 - Chronic fatigue, unspecified (12) Leukocytosis: Status: Resolved Code(s): D72.829 - Elevated white blood cell count, unspecified (13) Depression: Status: Chronic Code(s): F32.A - Depression, unspecified Comment: Started on Remeron 15 mg p.o. nightly to treat both depression and insomnia. She is sleeping much better prior to discharge. (14) Osteoarthritis: Status: Chronic Code(s): M19.90 - Unspecified osteoarthritis, unspecified site (15) Hypertension: Status: Chronic Code(s): I10 - Essential (primary) hypertension Comment: Currently diet controlled. Plan 1. Transfer to transitional care unit for additional therapy to strengthen/rehabilitate so that she may return home by herself. Her brother was able to provide some assistance with driving/grocery shopping/transportation Allergies/Procedures Done in Hospital Allergies No Known Allergies Allergy (Verified 09/13/23 13:54) Procedures: None Type of Care/Length of Stay Estimated LOS: Convalescent Care Less Than 30 days Type of Care Needed: Skilled Rehab Potential: Good Prognosis: Good Additional Orders/Day of Discharge Additional Orders: 1. No flexing of the hip greater than 90 degrees 2. Do not cross your legs 3. No twisting H&P will serve as current which was dated: 09/13/23 Day of Discharge: 09/29/23 Dietary and Speech Recommendations Dietitian Recommendations/Changes: continue regular diet, whole milk w/ meals per pt request Follow Up Care Please follow up with your Primary Care Physician in: Dr. De Luna - appt has been scheduled Please Follow Up With: Dr. Link Woodall When: Appt has been scheduled......see the DC plan Discharge Plan Admission Admit Date/Time: 09/13/23 12:50 Primary Reason for Your Visit: Physical debility secondary to fall/left periprosthetic hip fracture/ORIF Attending Provider: Julita Rasheed Primary Care Provider: Td De Luna Consulting Providers: Sal Cisneros Instructions Additional Instructions / Restrictions: 1. I recommend you have a DEXA (bone density test) if you have not had one in the past 2 years. 2. You have been significantly depressed for at least a year and this lead to poor sleep, lack of motivation, declining health, chronic fatigue and weakness. I started you on a antidepressant called Remeron. I chose this medication because it not only is a good antidepressant it also makes you sleepy. The insomnia is much better since this medication was started. I also recommend you consider some counselling.......treatment of depression is much more effective if you combine medication with psychotherapy. I would take the antidepressant for at least 6 months. If at the end of 6 months you are sleeping well, your are motivated to restore your house and have been working on this, you are not isolating and you do not feel depressed any longer then the dose could be cut in 1/2 for a month. IF after 1 month you are still not feeling depressed, you are not irritable, you are getting things done and you are not isolating would cut in 1/2 again monthly until you are off the medication. If at any time you feel the depression is recurring go back to taking the lowest effective dose and try again to taper in another 3 - 6 months. 3. Do not sit for longer than 1 hour while awake without getting up and taking a walk.......It helps prevent stiffness and helps control pain. If you sit too long and get very stiff in the joints then you will not want to get up and this impairs progress with therapy. 4. You are iron deficient. One of the reasons for the fatigue is the iron deficiency is not allowing your body to make new RBC's. Usually this comes from chronic blood loss. Your stool is heme negative. Blood loss in the stool can be intermittent. Sometimes associated with using medications like Motrin and Alleve to control arthritis pain. these medications can cause ulcers in the GI tract. I recommend you discuss the iron deficiency with Dr. De Luna. He may recommend you have a colonoscopy and/or an EGD (to look at the stomach and the upper GI tract. 5. It has been a pleasure meeting you. Good luck with your efforts to restore your house. Pace yourself........you just had a bad fall and surgery and it will take at least 3 months until you are back to your baseline. Overdoing will make you more painful and set back your recovery. If you have questions after you leave rehab please do not hesitate to call me. OFFICE: [phone] CELL: [phone] Discharge Orders/Prescriptions Prescriptions: New acetaminophen 500 mg Tablet 1,000 mg PO Q8H PRN (Reason: fever or pain 1-10) Qty: 1 0RF enoxaparin 40 mg/0.4 mL Syringe 40 mg subcut DAILY@0600 Qty: 2 0RF Rx Instructions: DC after the last dose on 10/04/23. ciprofloxacin HCl 250 mg Tablet 250 mg PO BID Qty: 2 0RF Rx Instructions: DC after the last dose on 09/29/23 magnesium hydroxide 400 mg/5 mL Suspension 30 ml PO X1 PRN (Reason: Constipation) Qty: 1 0RF bisacodyl 10 mg Suppository 10 mg TN X1 PRN (Reason: Constipation) Qty: 1 0RF ferrous sulfate [FeroSul] 325 mg (65 mg iron) Tablet 325 mg PO DAILY@1200 Qty: 1 0RF Rx Instructions: Restart 10/01/23 Venofer 100 mg iron/5 mL Solution 200 mg IV DAILY Qty: 10 0RF Rx Instructions: She will get 200 mg IV on 09/29/23 and on 09/30/23 and then discontinue and restart the oral iron. mirtazapine 15 mg Tablet 15 mg PO QHS Qty: 1 0RF alum-mag hydroxide-simeth [Mag-Al Plus Extra Strength] 400-400-40 mg/5 mL Suspension 15 ml PO Q6H PRN PRN (Reason: DYSPEPSIA) Qty: 1 0RF oxycodone 5 mg Tablet 5 mg PO Q4H PRN PRN (Reason: pain 4-10) 7 Days Qty: 30 0RF Rx Instructions: 5 mg Q4H PRN pain 4-10 and steve 10 mg at HS sennosides-docusate sodium [Stool Softener-Stimulant Laxat] 8.6-50 mg Tablet 2 tab PO BID Qty: 1 0RF oxycodone 5 mg Tablet 10 mg PO 2200 14 Days Qty: 28 0RF Continued methocarbamol 500 mg tablet 500 mg PO TID PRN (Reason: muscle spasm) multivitamin [Daily Multi-Vitamin] Tablet 1 tab PO DAILY Discontinued acetaminophen 325 mg capsule 650 mg PO Q4H PRN (Reason: fever or pain) enoxaparin [Lovenox] 40 mg/0.4 mL syringe 40 mg subcut DAILY oxycodone 5 mg tablet 5 mg PO Q6H PRN (Reason: pain) Referrals / Follow Up: Nidia Woodall [Other] - 10/03/23 1:45 pm ([facility] ) Td De Luna MD [Primary Care Provider] - 10/05/23 11:00 am Disposition Disposition (needs filled in before D/C Order can be placed): [facility] (2) Closed posterior wall fracture of left acetabulum Qualifiers: Encounter type: subsequent encounter Fracture alignment: displaced Fracture healing: with routine healing Qualified Code(s): S32.422D - Displaced fracture of posterior wall of left acetabulum, subsequent encounter for fracture with routine healing (9) Urinary incontinence Qualifiers: Urinary Incontinence type: urge incontinence Qualified Code(s): N39.41 - Urge incontinence (12) Leukocytosis Qualifiers: Leukocytosis type: bandemia Qualified Code(s): D72.825 - Bandemia (13) Depression Qualifiers: Depression Type: reactive depression Qualified Code(s): F32.9 - Major depressive disorder, single episode, unspecified (14) Osteoarthritis Qualifiers: Osteoarthritis location: multiple joints Osteoarthritis type: primary Qualified Code(s): M15.9 - Polyosteoarthritis, unspecified (15) Hypertension Qualifiers: Hypertension type: primary hypertension Qualified Code(s): I10 - Essential (primary) hypertension
--- NOTE | 2023-09-28 17:08 | PCM.DC.SUM ---
Providers Date of Admission: 09/13/23 Date of Discharge: 09/29/23 Primary Care Physician: Dr. Td De Luna MD Consultations 09/15/23 10:55 Consult: Podiatry Routine Consulting Provider: Sal Cisneros Reason for Consult: nail debridement EMERGENT Consult: No MD Notified: Yes Date Notified: 09/15/23 Time Notified: 10:55 Method of Notification: Answering Service Method of Consult:: In-Person Reason For Visit: LEFT HIP FRACTURE Diagnosis Discharge Diagnosis (1) Debility: Status: Acute Code(s): R53.81 - Other malaise Plan: Transfer to TCU for additional strengthening/rehabilitation prior to returning home (2) Closed posterior wall fracture of left acetabulum: Status: Acute Code(s): S32.422A - Displaced fracture of posterior wall of left acetabulum, initial encounter for closed fracture Qualifiers: Encounter type: subsequent encounter Fracture alignment: displaced Fracture healing: with routine healing Qualified Code(s): S32.422D - Displaced fracture of posterior wall of left acetabulum, subsequent encounter for fracture with routine healing (3) History of left hip hemiarthroplasty: Status: Acute Code(s): Z96.642 - Presence of left artificial hip joint (4) Acute blood loss anemia: Status: Acute Code(s): D62 - Acute posthemorrhagic anemia Plan: Likely due to pelvic hematoma and surgery. HGB was 11.9 prior to fall/fracture/ORIF. (5) Iron deficiency: Status: Acute Code(s): E61.1 - Iron deficiency (6) Thrombocytosis: Status: Acute Code(s): D75.839 - Thrombocytosis, unspecified Plan: Reactive due to trauma/surgery/UTI/ iron deficiency and anemia. PLT's down to 622,000 (from 966,000) prior to DC from Acute rehab. (7) Dehydration: Status: Resolved Code(s): E86.0 - Dehydration (8) Hyponatremia: Status: Resolved Code(s): E87.1 - Hypo-osmolality and hyponatremia (9) Urinary incontinence: Status: Acute Code(s): R32 - Unspecified urinary incontinence Qualifiers: Urinary Incontinence type: urge incontinence Qualified Code(s): N39.41 - Urge incontinence Plan: Resolved with tx of UTI. (10) Cystitis: Status: Resolved Code(s): N30.90 - Cystitis, unspecified without hematuria Plan: Finish the 7-day course of ciprofloxacin. (11) Chronic fatigue: Status: Chronic Code(s): R53.82 - Chronic fatigue, unspecified (12) Leukocytosis: Status: Resolved Code(s): D72.829 - Elevated white blood cell count, unspecified Qualifiers: Leukocytosis type: bandemia Qualified Code(s): D72.825 - Bandemia (13) Depression: Status: Chronic Code(s): F32.A - Depression, unspecified Qualifiers: Depression Type: reactive depression Qualified Code(s): F32.9 - Major depressive disorder, single episode, unspecified (14) Osteoarthritis: Status: Chronic Code(s): M19.90 - Unspecified osteoarthritis, unspecified site Qualifiers: Osteoarthritis location: multiple joints Osteoarthritis type: primary Qualified Code(s): M15.9 - Polyosteoarthritis, unspecified (15) Hypertension: Status: Chronic Code(s): I10 - Essential (primary) hypertension Qualifiers: Hypertension type: primary hypertension Qualified Code(s): I10 - Essential (primary) hypertension Plan 1. Transfer to transitional care unit for additional therapy to strengthen/rehabilitate so that she may return home by herself. Her brother was able to provide some assistance with driving/grocery shopping/transportation Medications at Discharge Home Medications methocarbamol 500 mg tablet 500 mg PO TID PRN muscle spasm 09/13/23 multivitamin (Daily Multi-Vitamin tablet) 1 tab PO DAILY supplement 09/13/23 acetaminophen 500 mg tablet 1,000 mg (2 x 500 mg) PO Q8H PRN fever or pain 1-10 #1 TAB 09/28/23 aluminum-mag hydroxide-simethicone 400 mg-400 mg-40 mg/5 mL oral susp (Mag-Al Plus Extra Strength) 15 ml PO Q6H PRN PRN DYSPEPSIA #1 mL 09/28/23 bisacodyl 10 mg rectal suppository [address] X1 PRN Constipation #1 ea 09/28/23 ciprofloxacin HCl 250 mg tablet 250 mg PO BID #2 tabs 09/28/23 enoxaparin 40 mg/0.4 mL subcutaneous syringe 40 mg (0.4 mL) subcut DAILY@0600 #2 mL 09/28/23 ferrous sulfate 325 mg (65 mg iron) tablet (FeroSul) 325 mg PO DAILY@1200 #1 TAB 09/28/23 iron sucrose 100 mg iron/5 mL intravenous solution (Venofer) 200 mg (10 mL) IV DAILY #10 mL 09/28/23 magnesium hydroxide 400 mg/5 mL oral suspension 30 ml PO X1 PRN Constipation #1 mL 09/28/23 mirtazapine 15 mg tablet 15 mg PO QHS #1 TAB 09/28/23 oxycodone 5 mg tablet 5 mg PO Q4H PRN PRN pain 4-10 1 week #30 tabs 09/28/23 oxycodone 5 mg tablet 10 mg (2 x 5 mg) PO 2200 2 weeks #28 tabs 09/28/23 sennosides 8.6 mg-docusate sodium 50 mg tablet (Stool Softener-Stimulant Laxative) 2 tab PO BID #1 TAB 09/28/23 Hospital Course Operations - (Open reduction internal fixation right hip posterior acetabular fracture at [facility] by Dr. Link Woodall on 09/05/2023.) Procedures None Summary of Care Provided Minutes Spent on Discharge: 40 Hospital Course: MO LONG, is a 67 F with a PMH of Depression, HH, HTN, recurrent hyponatremia (no cause listed on H&P from [facility]) hx of BL TKA and hx of a LTHA in 2019 who presented to [facility] on 09/01/23 c/o of L hip pain after a ground level fall on 08/30/22 when she tripped over her own feet. Imaging revealed a left periprosthetic posterior wall acetabular fracture. Significant lab at admission included a low sodium at 129 with a BUN of 20 and a creatinine of 0.71. She underwent a cemented left hip hemiarthroplasty on 09/05/[address] Link Woodall. Postoperatively she was seen by PT/OT and a recommendation for acute inpatient rehab was made. She lives alone and prior to the recent fall she was independent with functional transfers, independent with household and community ambulation, independent with household management and all ADL's and she was driving. Mo was transferred to the in acute rehab unit at [facility] on 09/13/23 for 3 hours of therapy daily to restore function/independence at or near to her level prior to the recent fall. Madhavi told me at admission that she had not been out of bed for 2 weeks prior to arrival on rehab. She felt very weak and was not ambulating. She felt stiff and painful. She has never had a DEXA/BMD and she was not on calcium or a vitamin D supplement. A vitamin D level was checked and was within normal limits. I advised her to start a vitamin D supplement, especially in the winter months, because of the lack of sunshine in [place], sam in the winter. she had menopause in her late 40's and she has never been . would advise obtaining a DEXA following DC from [facility]. She has never been a smoker. Following admission to rehab she started c/o urinary urgency and dysuria and she had urinary incontinence. UA showed 5-10 white blood cells per high-powered field with rare bacteria. CBC showed an elevated white blood cell count at 13.2. This was a straight cath specimen. Urine culture grew an E. coli ESBL. I suspect this was hospital-acquired while at [facility] because she denied history of frequent urinary tract infections and had not been on antibiotics so I can not explain why she would have a ESBL organism. . She was treated with 7 days of Cipro 250 mg BID. Dysuria, urgency and urinary incontinence resolved after few days on antibiotics. Sodium was still low at 133 at admission to rehab (it was 129 at admission to [facility]) and a fractional excretion of sodium was calculated and found to be 0.2% which is consistent with prerenal azotemia. She was hydrated with intravenous normal saline and has had a normal sodium since then. PLT's were elevated at admission to rehab at 836,000. This later increased to 966,000 with a urinary tract infection and prior to discharge with treatment of the urinary tract infection platelets were 612,000. She had no hemorrhagic or thrombotic events while on acute rehab. The thrombocytosis is more likely than not reactive. Hemoglobin at admission to rehab was 7.2. MCV was macrocytic. Hemoglobin at admission to [facility] was 11.9. She had a pelvic hematoma due to the left hip posterior acetabular fracture and this coupled with surgery is the likely etiology of the drop in hemoglobin from 11.9 to the low 70s. Iron studies were checked even though she was macrocytic....RDW was increased. Serum iron is low at 25 with a very low iron saturation percentage of 8.3%. Ferritin was normal at 176 ferritin is an acute phase reactant was likely falsely elevated secondary to recent fracture/surgery/UTI. HGB increased to 7.9 and stayed there on PO iron. she was symptomatic with weakness and the decision was made to administer 3 doses of iron sucrose 200 mg to stimulate BM/RBC production. After 3 doses of IV iron she will be transitioned to oral iron 325 mg once daily. 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 She had been depressed in the past when her but, she had never had any psychotherapy and the antidepressant she was prescribed did not agree with her.....she could not recall the name of the antidepressant. She c/o chronic fatigue, lack of motivation, insomnia, irritability and she was isolating. She was started on Remeron 15 mg Q HS and almost immediately the insomnia resolved. Although she has only been on the medication since 09/25/23 she has been very motivated throughout her admission to rehab to do therapy and get home. She has a plan to restore the farmhouse to it's former glory. I advised her to continue the antidepressant for 6 months before trying to taper it down or off. She knows that if she abruptly stops the medication she will likely have withdrawal symptoms. At the time of discharge from acute rehab she is supervision/set up for eating, grooming and upper body dressing. She is standby assist with toileting and contact-guard assist for toilet transfers and tub/shower transfer. She requires only minimal assistance for lower body dressing. She is able to ambulate up to 182 feet with a wheeled walker at close standby assist and a step to pattern. She lands heavily on the right lower extremity while ambulating. Still not wanting to shift her weight to the left side. She is able to a send/descend (backwards) to 6 inch steps x 4 sets at contact-guard assist. Madhavi did not feel safe to go home at the time of DC from acute rehab because she lives alone and she felt she would need to be stronger to be home alone. Her brother is able to provide some assistance but, he works full stack developer and is not available during his work hours. She was transferred to TCU on 09/29/23 for additional strengthening/rehabilitation prior to returning home independently. QUEENIE as an OP Consider psychotherapy for recurrent depression. Take a vitamin D supplement...at least in the winter months. Physical Exam Const alert, oriented x3 and no apparent distress Constitutional Narrative: somewhat pale General Appearance: cooperative Eyes Eyes Narrative: Palpebral conjunctiva is pale Resp normal respiratory effort, normal air movement and clear to auscultation bilaterally Effort and Inspection: Negative for tachypneic Cardio regular rate, regular rhythm and no gallops GI normal to inspection, nondistended, normoactive bowel sounds, soft to palpation and non-tender GI Narrative: No epigastric pain with palpation. Skin General Skin Exam: no breakdown Rashes: no rashes Wound Narrative: Incision is healing well with no dehiscence, no purulent discharge and no carlitos-incisional erythema. Psych thought process normal and cooperative Appearance: appropriate Attitude: No agitated Weight / BMI Weight Weight: 154 lb 15.759 oz Body Mass Index (BMI) 24.9 ABG / Lab / Microbiology Data 09/28/23 05:31 09/28/23 05:31 Laboratory: Laboratory Results - last 24 hr 09/28/23 05:31: WBC 6.9, RBC 2.58 L, Hgb 7.9 L, Hct 25.6 L, MCV 99.2 H, MCH 30.6, MCHC 30.9 L, RDW Std Deviation 50.1 H, RDW Coeff of Kindra 13.8, Plt Count 612 H, MPV 8.0, Immature Gran % (Auto) 0.400, Neut % (Auto) 50.2, Lymph % (Auto) 30.5, Mayes % (Auto) 12.1 H, Eos % (Auto) 6.1 H, Baso % (Auto) 0.7, Absolute Neuts (auto) 3.5, Absolute Lymphs (auto) 2.11, Nucleated RBC % 0, Sodium 138, Potassium 4.2, Chloride 106, Carbon Dioxide 27.0, Anion Gap 5, BUN 17, Creatinine 0.68, Estim Creat Clear Calc 63.88, Est GFR (MDRD) Af Amer 110, Est GFR (MDRD) Non-Af 91, BUN/Creatinine Ratio 24.9 H, Glucose 85, Calcium 8.7 Microbiology: Microbiology 09/24/23 18:30 Stool Stool Occult Blood ([facility]) - Final 09/20/23 21:00 Urine, Catheterized Urine Culture - Final ESBL Escherichia coli D/C Instructions Please Follow Up With: Dr. Link Woodall Meaningful Use Info Meaningful Use Diagnoses (Choose all that apply): None applicable Discharge Plan Admission Admit Date/Time: 09/13/23 12:50 Primary Reason for Your Visit: Physical debility secondary to fall/left periprosthetic hip fracture/ORIF Attending Provider: Julita Rasheed Primary Care Provider: Td De Luna Consulting Providers: Sal Cisneros Instructions Additional Instructions / Restrictions: 1. I recommend you have a DEXA (bone density test) if you have not had one in the past 2 years. 2. You have been significantly depressed for at least a year and this lead to poor sleep, lack of motivation, declining health, chronic fatigue and weakness. I started you on a antidepressant called Remeron. I chose this medication because it not only is a good antidepressant it also makes you sleepy. The insomnia is much better since this medication was started. I also recommend you consider some counselling.......treatment of depression is much more effective if you combine medication with psychotherapy. I would take the antidepressant for at least 6 months. If at the end of 6 months you are sleeping well, your are motivated to restore your house and have been working on this, you are not isolating and you do not feel depressed any longer then the dose could be cut in 1/2 for a month. IF after 1 month you are still not feeling depressed, you are not irritable, you are getting things done and you are not isolating would cut in 1/2 again monthly until you are off the medication. If at any time you feel the depression is recurring go back to taking the lowest effective dose and try again to taper in another 3 - 6 months. 3. Do not sit for longer than 1 hour while awake without getting up and taking a walk.......It helps prevent stiffness and helps control pain. If you sit too long and get very stiff in the joints then you will not want to get up and this impairs progress with therapy. 4. You are iron deficient. One of the reasons for the fatigue is the iron deficiency is not allowing your body to make new RBC's. Usually this comes from chronic blood loss. Your stool is heme negative. Blood loss in the stool can be intermittent. Sometimes associated with using medications like Motrin and Alleve to control arthritis pain. these medications can cause ulcers in the GI tract. I recommend you discuss the iron deficiency with Dr. De Luna. He may recommend you have a colonoscopy and/or an EGD (to look at the stomach and the upper GI tract. 5. It has been a pleasure meeting you. Good luck with your efforts to restore your house. Pace yourself........you just had a bad fall and surgery and it will take at least 3 months until you are back to your baseline. Overdoing will make you more painful and set back your recovery. If you have questions after you leave rehab please do not hesitate to call me. OFFICE: [phone] CELL: [phone] Discharge Orders/Prescriptions Prescriptions: New acetaminophen 500 mg Tablet 1,000 mg PO Q8H PRN (Reason: fever or pain 1-10) Qty: 1 0RF enoxaparin 40 mg/0.4 mL Syringe 40 mg subcut DAILY@0600 Qty: 2 0RF Rx Instructions: DC after the last dose on 10/04/23. ciprofloxacin HCl 250 mg Tablet 250 mg PO BID Qty: 2 0RF Rx Instructions: DC after the last dose on 09/29/23 magnesium hydroxide 400 mg/5 mL Suspension 30 ml PO X1 PRN (Reason: Constipation) Qty: 1 0RF bisacodyl 10 mg Suppository [address] X1 PRN (Reason: Constipation) Qty: 1 0RF ferrous sulfate [FeroSul] 325 mg (65 mg iron) Tablet 325 mg PO DAILY@1200 Qty: 1 0RF Rx Instructions: Restart 10/01/23 Venofer 100 mg iron/5 mL Solution 200 mg IV DAILY Qty: 10 0RF Rx Instructions: She will get 200 mg IV on 09/29/23 and on 09/30/23 and then discontinue and restart the oral iron. mirtazapine 15 mg Tablet 15 mg PO QHS Qty: 1 0RF alum-mag hydroxide-simeth [Mag-Al Plus Extra Strength] 400-400-40 mg/5 mL Suspension 15 ml PO Q6H PRN PRN (Reason: DYSPEPSIA) Qty: 1 0RF oxycodone 5 mg Tablet 5 mg PO Q4H PRN PRN (Reason: pain 4-10) 7 Days Qty: 30 0RF Rx Instructions: 5 mg Q4H PRN pain 4-10 and steve 10 mg at HS sennosides-docusate sodium [Stool Softener-Stimulant Laxat] 8.6-50 mg Tablet 2 tab PO BID Qty: 1 0RF oxycodone 5 mg Tablet 10 mg PO 2200 14 Days Qty: 28 0RF Continued methocarbamol 500 mg tablet 500 mg PO TID PRN (Reason: muscle spasm) multivitamin [Daily Multi-Vitamin] Tablet 1 tab PO DAILY Discontinued acetaminophen 325 mg capsule 650 mg PO Q4H PRN (Reason: fever or pain) enoxaparin [Lovenox] 40 mg/0.4 mL syringe 40 mg subcut DAILY oxycodone 5 mg tablet 5 mg PO Q6H PRN (Reason: pain) Referrals / Follow Up: Nidia Woodall [Other] - 10/03/23 1:45 pm ([facility] ) Td De Luna MD [Primary Care Provider] - Within 2 Weeks Disposition Disposition (needs filled in before D/C Order can be placed): Long-Term Facility Charges/Coding Visit Charges Inpatient E&M: 92814 Disch Hosp >30min
[2023-09-28 19:24] VITALS: BP 124/69; PULSE 64; RESP 16; TEMP 37; O2SAT 96
[2023-09-28] MEDS: Mirtazapine 15 MG Tablet PO (21:19)
[2023-09-28] MEDS: oxyCODONE 5 MG Tablet 10 MG PO (21:19)
[2023-09-28 22:00] VITALS: PULSE 64; RESP 16; O2SAT 96
[2023-09-29] MEDS: Acetaminophen 500 MG Tablet 1000 MG PO (01:03)
[2023-09-29 06:00] VITALS: BMI 25.1
[2023-09-29] MEDS: oxyCODONE 5 MG Tablet PO ×2 (06:04→14:14)
[2023-09-29] MEDS: Methocarbamol 500 MG Tablet PO ×2 (06:05→14:14)
[2023-09-29] MEDS: Enoxaparin 40 MG/0.4 ML Syringe SC (06:05)
[2023-09-29 07:42] VITALS: BP 104/70; PULSE 63; RESP 16; TEMP 36.2; O2SAT 97
[2023-09-29] MEDS: Multivitamins,Therapeutic Tablet 1 TABLET PO (08:16)
[2023-09-29] MEDS: Ciprofloxacin 250 MG Tablet PO (08:16)
[2023-09-29] MEDS: 0.9% Saline Lock 10 ML Syringe IV (09:20)
[2023-09-29] MEDS: Iron Sucrose Complex 200 MG in 0.9% Normal Saline (100mL Bag) 100 ML 220 MG IV (09:21)
[2023-09-29 14:53] VITALS: BP 104/70; PULSE 63; RESP 63; TEMP 36.2; O2SAT 16
== END 2023-09-29 14:39 | disposition skilled nursing facility (03) | DRG 560 ==
PROVIDERS: Admitting Provider Internal Medicine; PCP Family Medicine; Visit Provider Internal Medicine
DX: M97.02XD Periprosthetic fracture around internal prosthetic left hip joint, subsequent encounter (principal); E87.1 Hypo-osmolality and hyponatremia; I10 Essential (primary) hypertension; D50.9 Iron deficiency anemia, unspecified; W01.0XXD Fall on same level from slipping, tripping and stumbling without subsequent striking against object, subsequent encounter; N30.90 Cystitis, unspecified without hematuria; B35.1 Tinea unguium; Z96.642 Presence of left artificial hip joint; Z79.899 Other long term (current) drug therapy; Z79.01 Long term (current) use of anticoagulants; G89.29 Other chronic pain; B96.20 Unspecified Escherichia coli [E. coli] as the cause of diseases classified elsewhere; N39.41 Urge incontinence
CPT/HCPCS: 36415; 80048; 80053; 81001; 82274; 82306; 82570; 82607; 82728; 82746; 82962; 83540; 83550; 83735; 84100; 84300; 84443; 85014; 85018; 85025; 85027; 85045; 86850; 86900; 86901; 87086; 87088; 87186; 94668; 97110; 97112; 97116; 97162; 97166; 97530; 97535; 97802; 97803; 99252; J1756; J7030; J7050; A4216; G0463

== ENCOUNTER 2023-09-29 14:53 | Inpatient (IN) | payer MEDICARE, OTHER, SELFPAY ==
[2023-09-29 15:21] VITALS: BP 113/72; PULSE 76; PULSE 77; RESP 16; TEMP 37.3; O2SAT 94; BMI 25.9
--- NOTE | 2023-09-29 16:03 | HP.PCM_ITS ---
HPI - General General Date of Admission: 09/29/23 Date of Service: 09/29/23 Chief Complaint: Here for rehabilitation. HPI Narrative ALLISON LONG, is a 67 Female who presents with followin08/30/2023 Fall, left hip pain. 09/01/2023 [facility] left periprosthetic hip fracture. 09/05/2023 Dr. Woodall performed left hip hemiarthroplasty. 09/13/2023 Admit to . PT/OT, DEXA after discharge. 09/14/2023 Normal Saline IV for dehydration. Transfuse if hemoglobin < 7.0. 09/20/2023 Doing well with therapy. Check urinalysis, C+S. 09/22/2023 Cipro x 7 days for ESBL E. Coli urinary tract infection. Check stool guaiac for anemia. 09/25/2023 Remeron 15mg qhs added for depression. 09/26/2023 Slept better with Remeron. DEXA after discharge, vitamin D normal. 09/28/2023 Fatigue. Iron 200mg iv daily x 3 days for iron deficiency anemia. 09/29/2023 Admit to TCU with debility, here for rehabilitation, strengthening, prior to discharge home alone. [facility] Medical History Chronic fatigue Closed posterior wall fracture of left acetabulum Depression Hiatal hernia Hypertension Osteoarthritis Home Medications methocarbamol 500 mg tablet 500 mg PO TID PRN muscle spasm 09/13/23 [History Last Taken 09/29/23] multivitamin (Daily Multi-Vitamin tablet) 1 tab PO DAILY supplement 09/13/23 [ History Last Taken 09/29/23] acetaminophen 500 mg tablet 1,000 mg (2 x 500 mg) PO Q8H PRN fever or pain 1-10 #1 TAB 09/28/23 [Rx Last Taken 09/29/23] aluminum-mag hydroxide-simethicone 400 mg-400 mg-40 mg/5 mL oral susp (Mag-Al Plus Extra Strength) 15 ml PO Q6H PRN PRN DYSPEPSIA #1 mL 09/28/23 [Rx Last Taken Unknown] bisacodyl 10 mg rectal suppository 10 mg ID X1 PRN Constipation #1 ea 09/28/23 [Rx Last Taken Unknown] ciprofloxacin HCl 250 mg tablet 250 mg PO BID Antibiotic #2 tabs 09/28/23 [Rx Last Taken 09/29/23] enoxaparin 40 mg/0.4 mL subcutaneous syringe 40 mg (0.4 mL) subcut DAILY@0600 D VT prophylaxis #2 mL 09/28/23 [Rx Last Taken 09/29/23] ferrous sulfate 325 mg (65 mg iron) tablet (FeroSul) 325 mg PO DAILY@1200 Supplement #1 TAB 09/28/23 [Rx Last Taken Unknown] iron sucrose 100 mg iron/5 mL intravenous solution (Venofer) 200 mg (10 mL) IV DAILY Supplement #10 mL 09/28/23 [Rx Last Taken 09/29/23] magnesium hydroxide 400 mg/5 mL oral suspension 30 ml PO X1 PRN Constipation #1 mL 09/28/23 [Rx Last Taken Unknown] mirtazapine 15 mg tablet 15 mg PO QHS Mood #1 TAB 09/28/23 [Rx Last Taken 09/29/23] oxycodone 5 mg tablet 5 mg PO Q4H PRN PRN pain 4-10 1 week #30 tabs 09/28/23 [Rx Last Taken Unknown] oxycodone 5 mg tablet 10 mg (2 x 5 mg) PO 2200 Pain 2 weeks #28 tabs 09/28/23 [Rx Last Taken Unknown] sennosides 8.6 mg-docusate sodium 50 mg tablet (Stool Softener-Stimulant Laxativ e) 2 tab PO BID Constipation #1 TAB 09/28/23 [Rx Last Taken 09/28/23] Allergy/AdvReac Type Severity Reaction Status Date / Time No Known Allergies Allergy Verified 09/13/23 13:54 Family History Mother Myocardial infarction Hypertension Father Prostate CA CVA (cerebral vascular accident) Surgical History History of arthroplasty of left knee History of arthroplasty of right knee History of left hip hemiarthroplasty History of open reduction and internal fixation (ORIF) procedure History of tonsillectomy S/P total left hip arthroplasty Social History household members: none and other details: She is a housing: house number of children: 0 current occupational status: employed 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 Smoking Status: Never smoker alcohol intake: current alcohol intake frequency: holidays/special occasions only details: Not currently substance use type: does not use ROS Constitutional Constitutional: Denies chills, fever(s) or weight gain ENT HEENT: Denies headache(s), nasal congestion or nasal discharge Cardiovascular Cardiovascular: Denies chest pain or palpitations Respiratory/Chest Respiratory/Chest: Denies cough, excessive phlegm production or shortness of breath with exertion Gastrointestinal Gastrointestinal: Denies abdominal pain, nausea or vomiting Genitourinary Genitourinary: Denies dysuria Musculoskeletal Musculoskeletal: Denies joint pain or joint swelling Integumentary Integumentary: Denies rash or wounds Neurologic Neurologic: Denies focal weakness, numbness or tingling Psychiatric Psychiatric: Denies anxiety, auditory hallucinations, depression, homicidal ideation or suicidal ideation Physical Exam Const alert General Appearance: cooperative HEENT normocephalic Eyes PERRL and EOMs intact bilaterally Neck supple, no JVD and no carotid bruits Resp normal respiratory effort, normal air movement and clear to auscultation bilaterally Cardio regular rate and regular rhythm GI normal to inspection, nondistended, normoactive bowel sounds, non-tender and non-distended Extremity normal capillary refill General Extremity: Negative for edema Skin no rashes or lesions noted General Skin Exam: no breakdown Psych affect normal Appearance: appropriate Assessment & Plan Assessment/Plan (1) Debility: (2) History of left hip hemiarthroplasty: (3) Periprosthetic fracture around internal prosthetic left hip joint: (4) Iron deficiency: (5) Depression: QUALIFIERS: Depression Type: reactive depression Qualified Code(s): F32.9 - Major depressive disorder, single episode, unspecified (6) Hypertension: QUALIFIERS: Hypertension type: primary hypertension Qualified Code(s): I10 - Essential (primary) hypertension (7) Hyponatremia: (8) Muscle spasm: PLAN: Plan 67 year old female with below past medical history hospitalized for left periprosthetic hip fracture, underwent left hip hemiarthroplasty 09/05/2023, admitted to 09/13/2023, transferred to TCU with debility, here for rehabilitation, strengthening, prior to discharge home alone. * Debility - PT/OT. * Pain - Tylenol 1000mg q8 prn pain (1-10), Oxycodone 5mg q4h prn, 10mg 2200. * Bowel - Senna/colace 2 tablets bid, Dulcolax 10mg pr x 1 prn, MOM 30ml po x 1 prn. * Adult immunization - Administer pneumonia vaccine, covid vaccine, flu vaccine as appropriate. * DVT prophylaxis - Lovenox 40mg sc daily. * Iron deficiency anemia - Ferrous sulfate 325mg daily, Iron sucrose 200mg iv daily thru 09/30/2023. * Indigestion - Mylanta II 15ml q6h prn. * Muscle spasm - Robaxin 500mg tid prn. * Depression/insomnia - Mirtazapine 15mg qhs, stable use, GDR not recommended. * Nutrition - MVI 1 tablet daily.
[2023-09-29] MEDS: oxyCODONE 5 MG Tablet 10 MG PO (21:36)
[2023-09-29] MEDS: Ciprofloxacin 250 MG Tablet PO (21:37)
[2023-09-29] MEDS: Senna/Docusate Sodium 1 Tablet 2 TABLET PO (21:37)
[2023-09-29] MEDS: Methocarbamol 500 MG Tablet PO (21:38)
[2023-09-30] MEDS: Methocarbamol 500 MG Tablet PO (04:43)
[2023-09-30] MEDS: oxyCODONE 5 MG Tablet PO (04:45)
[2023-09-30] MEDS: Enoxaparin 40 MG/0.4 ML Syringe SC (04:46)
[2023-09-30 07:39] LABS: Absolute Lymphocyte Count 2.16 X10^3/uL (0.83-4.51); Absolute Neutrophil Count 4.3 X10^3/uL (2.0-7.7); Basophil# 0.04 X10^3/uL; Basophil% 0.5 % (0-1); Eosinophil# 0.45 X10^3/uL; Eosinophils% 5.9 % (0-5); Hematocrit 30.1 % (37-47); Hemoglobin 9.5 g/dL (12.0-15.0); Lymphocyte # 2.16 X10^3/ul (0.83-4.51); Lymphocyte % 28.3 % (19-41); Mean Corp Hgb Conc 31.6 g/dL (32-36); Mean Corpuscular Hgb 31.4 pg (27.0-32.0); Mean Corpuscular Volume 99.3 fL (81-99); Mean Platelet Vol. 8.3 fl (6.2-12.0); Monocyte# 0.66 X10^3/uL; Monocyte% 8.6 % (0-10); NRBC Flagged by Analyzer 0 % (0-5); Neutrophil # 4.31 X10^3/uL (2.7-7.7); Neutrophil % 56.4 % (47-70); Platelet Count 657 K/mm3 (150-450); RBC Distribution Width CV 14.3 % (11.6-14.6); RBC Distribution Width SD 51.9 fl (35.1-43.9); Red Blood Count 3.03 M/mm3 (4.2-5.4); White Blood Count 7.6 K/mm3 (4.4-11.0)
[2023-09-30 08:42] VITALS: BP 102/65; PULSE 80; RESP 16; O2SAT 96
[2023-09-30] MEDS: Senna/Docusate Sodium 1 Tablet 2 TABLET PO ×2 (08:56→21:02)
[2023-09-30] MEDS: Multivitamins,Therapeutic Tablet 1 TABLET PO (08:57)
[2023-09-30 09:00] LABS: Anion Gap 9 (5-15); BUN 19 mg/dL (7-18); BUN/Creat Ratio 26.7 RATIO (10-20); Calcium,Total 9.5 mg/dL (8.5-10.1); Chloride 103 mmol/L (98-107); Creatinine, Serum 0.71 mg/dL (0.55-1.02); EST Glomerular Filtration Rate 87 mL/min (>60); Est Glom Filt Rate - Afr Amer 105 mL/min (>60); Estimated Creatinine Clearance 69.84 ml/min; Glucose 92 mg/dL (74-106); Sodium Level 136 mmol/L (136-145)
[2023-09-30] MEDS: Acetaminophen 500 MG Tablet 1000 MG PO ×2 (09:04→17:25)
[2023-09-30] MEDS: 0.9% Saline Lock 10 ML Syringe IV ×3 (11:17→21:02)
[2023-09-30] MEDS: Iron Sucrose Complex 200 MG in 0.9% Normal Saline (100mL Bag) 100 ML 220 MG IV (11:18)
--- NOTE | 2023-09-30 12:15 | NURSING ---
Pt states that she does not want the pneumonia vaccine while at [facility]. States I changed my mind...will wait to get it from Dr. Rockwell [PCP].
[2023-09-30] MEDS: Tuberculin,Purif.prot.deriv. 50 TU/ML Vial 0.100000000000000006 ML ID (12:38)
[2023-09-30 13:49] VITALS: TEMP 36.6
[2023-09-30] MEDS: Mirtazapine 15 MG Tablet PO (21:02)
[2023-09-30] MEDS: oxyCODONE 5 MG Tablet 10 MG PO (21:03)
[2023-10-01] MEDS: Enoxaparin 40 MG/0.4 ML Syringe SC (04:46)
[2023-10-01] MEDS: Methocarbamol 500 MG Tablet PO ×2 (04:47→17:51)
[2023-10-01] MEDS: oxyCODONE 5 MG Tablet PO ×2 (04:47→17:50)
[2023-10-01] MEDS: Multivitamins,Therapeutic Tablet 1 TABLET PO (09:10)
[2023-10-01] MEDS: Senna/Docusate Sodium 1 Tablet 2 TABLET PO ×2 (09:10→21:12)
[2023-10-01 09:20] VITALS: BP 108/58; PULSE 84; RESP 16; O2SAT 97
[2023-10-01] MEDS: Ferrous Sulfate 325 MG Tablet PO (13:07)
--- NOTE | 2023-10-01 13:10 | NURSING ---
Verified full code status with pt. Orders/chart updated.
[2023-10-01 14:00] VITALS: TEMP 36.2
[2023-10-01] MEDS: 0.9% Saline Lock 10 ML Syringe IV (21:12)
[2023-10-01] MEDS: oxyCODONE 5 MG Tablet 10 MG PO (21:12)
[2023-10-01] MEDS: Mirtazapine 15 MG Tablet PO (21:13)
[2023-10-02] MEDS: oxyCODONE 5 MG Tablet PO ×2 (06:34→13:39)
[2023-10-02] MEDS: Enoxaparin 40 MG/0.4 ML Syringe SC (06:35)
--- NOTE | 2023-10-02 08:10 | PHA.CONS_ITS ---
Documented by User: Jeff Rizvi 10/02/23 08:25 TCU RX Drug Regimen Review Subjective/Objective Subjective/Objective: Subjective: 67 year old female with below past medical history hospitalized for left periprosthetic hip fracture, underwent left hip hemiarthroplasty 1 11/06/2022, admitted to 09/13/2023, transferred to TCU with debility, here for rehabilitation, strengthening, prior to discharge home alone. Objective: Allergies No Known Allergies Allergy (Verified 09/13/23 13:54) Current Medications Generic Name Dose Route Start Last Admin Trade Name Freq PRN Reason Stop Dose Admin Acetaminophen 1,000 mg 09/29/23 15:22 09/30/23 17:25 Acetaminophen 500 Mg Tablet PO 1,000 mg Q8H PRN PRN Administration fever or pain 1-10 Al Hydroxide/Mg Hydroxide 15 ml 09/29/23 15:22 Mag Hydrox/Al Hydrox/Simeth 30 Ml Udc PO Q6H PRN PRN DYSPEPSIA Bisacodyl 10 mg 09/29/23 15:22 Bisacodyl 10 Mg Suppository RC X1 PRN Constipation Enoxaparin Sodium 40 mg 09/30/23 06:00 10/02/23 06:35 Enoxaparin 40 Mg/0.4 Ml Syringe SC 10/04/23 06:01 40 mg DAILY@0600 [facility] Administration Ferrous Sulfate 325 mg 10/01/23 12:00 10/01/23 13:07 Ferrous Sulfate 325 Mg Tablet PO 325 mg DAILY@1200 ANGEL Administration Magnesium Hydroxide 30 ml 09/29/23 15:22 Magnesium Hydroxide 30 Ml Udc PO X1 PRN Constipation Methocarbamol 500 mg 09/29/23 15:22 10/01/23 17:51 Methocarbamol 500 Mg Tablet PO 500 mg TID PRN PRN Administration muscle spasm Mirtazapine 15 mg 09/30/23 22:00 10/01/23 21:13 Mirtazapine 15 Mg Tablet PO 15 mg QHS ANGEL Administration Multivitamins 1 tablet 09/30/23 08:00 10/01/23 09:10 Multivitamins,Therapeutic Tablet PO 1 tablet DAILYCM ANGEL Administration Oxycodone HCl 5 mg 09/29/23 15:22 10/02/23 06:34 Oxycodone 5 Mg Tablet PO 5 mg Q4H PRN PRN Administration pain 4-10 Oxycodone HCl 10 mg 09/29/23 22:00 10/01/23 21:12 Oxycodone 5 Mg Tablet PO 10 mg 2200 ANGEL Administration Senna/Docusate Sodium 2 tablet 09/29/23 22:00 10/01/23 21:12 Senna/Docusate Sodium 1 Tablet PO 2 tablet BID ANGEL Administration Sodium Chloride 10 - 40 ml 09/29/23 16:21 10/01/23 21:12 0.9% Saline Lock 10 Ml Syringe IV 10 ml UD PRN Administration SALINE FLUSH Tuberculin PPD 0.1 ml 10/07/23 10:00 Tuberculin,Purif.Prot.Deriv. 50 Tu/Ml Vial ID 10/07/23 10:01 X1 ONE Problem List (Updated 09/29/23 @ 16:[address] He Mauricio MD) Muscle spasm (Acute) Periprosthetic fracture around internal prosthetic left hip joint (Acute) Iron deficiency (Acute) History of left hip hemiarthroplasty (Acute) Debility (Acute) Depression (Chronic) Hypertension (Chronic) Vital Signs Temp Pulse Resp BP Pulse Ox O2 Del Method 97.1 F L 84 16 108/58 L 97 Room Air 10/01/23 14:00 10/01/23 09:20 10/01/23 09:20 10/01/23 09:20 10/01/23 09:20 10/01/23 10:00 Oxygen Delivery Method Room Air Weight: 73.119 kg Body Mass Index (BMI) 25.9 Sodium 136 mmol/L (136-145) 09/30/23 07:07 Potassium 4.0 mmol/L (3.5-5.1) 09/30/23 07:07 Chloride 103 mmol/L (98-107) 09/30/23 07:07 Carbon Dioxide 24.0 mmol/L (21.0-32.0) 09/30/23 07:07 Anion Gap 9 (5-15) 09/30/23 07:07 BUN 19 mg/dL (7-18) H 09/30/23 07:07 Creatinine 0.71 mg/dL (0.55-1.02) 09/30/23 07:07 Est GFR (MDRD) Af Amer 105 mL/min (>60) 09/30/23 07:07 Est GFR (MDRD) Non-Af 87 mL/min (>60) 09/30/23 07:07 BUN/Creatinine Ratio 26.7 RATIO (10-20) H 09/30/23 07:07 Glucose 92 mg/dL (74-106) 09/30/23 07:07 Assessment/Plan: 1. Pain: acetaminophen 1000 mg PO Q8H PRN pain (1-10), oxycodone 10 mg PO @ 2200, oxycodone 5 mg Po Q4H PRN pain (4-10). The patient has used 2 doses of PRN acetaminophen and 4 doses of PRN oxycodone so far this admission. Pain appears to be controlled with PRN medications. Please continue to monitor pain scores, for PRN medication usage, LFTs (AST/ALT = 26/32 U/L on 09/14/23), for constipation, dizziness/drowsiness, respiratory depression, and syncope/ataxia/falls. 2. Bowel: senna/docusate 2 tablets PO BID, bisacodyl 10 mg SC x 1 PRN constipation, magnesium hydroxide 30 mL PO x1 PRN constipation. The patient has not required any PRN medications for constipation so far this admission and the patients last bowel movement was on 09/30/23. Please continue to monitor for PRN medication administration, for diarrhea, constipation and bowel movements,. 3. DVT prophylaxis: enoxaparin 40 mg SC daily @ 0600 through 10/04/23. Please continue to monitor for s/s of a DVT such as pain/erythema/swelling in an extremity, renal function (serum creatinine = 0.71 mg/dL with creatinine clearance ~ 70 mL/min on 09/30/23), hemoglobin levels (Hgb = 9.5 g/dL on 09/30/23), platelet counts (Plt = 657 K/mm3 on 09/30/23) and for other s/s of bleeding/excessive bruising. 4. Iron deficiency anemia: ferrous sulfate 325 mg PO daily @ 1200. Please continue to monitor hemoglobin levels (Hgb = 9.5 g/dL on 09/30/23), iron levels (iron = 25 ug/dL on 09/22/23), and for GI distress with iron administration. 5. Muscle spasms: methocarbamol 500 mg PO TID PRN muscle spasms. The patient has received 4 doses of methocarbamol so far this admission. Please continue to monitor for muscle spasms, for PRN medication administration, for dizziness/dr owsiness, for confusion and falls. 6. Indigestion: Mylanta 15 mL PO Q6H PRN dyspepsia. The patient has not required any PRN doses of mylanta so far this admission. Please continue to monitor for indigestion as well as PRN medication usage. 7. Nutrition: multivitamin 1 tablet PO daily. Please continue to monitor nutritional status. Assessment/Plan for indications treated with psychotropic medications: 1. Depression/insomnia: mirtazapine 15 mg PO QHS. Please see provider notes regarding stable use, GDR not recommended. Please continue to monitor for depression, insomnia, SI, movement issues, s/s of orthostasis, sedation, s/s of serotonin syndrome, constipation, dry mouth and drowsiness. Medical chart and medication regimen reviewed. The following medication irregularities or issues were identified: NA Date Date of Note:: 10/02/23 Documented by User: Dr. He Mauricio MD 10/02/23 08:55 TCU RX Drug Regimen Review Provider Comments Provider responsibility Provider Comments to Recommendations by Pharmacy: Agree
[2023-10-02] MEDS: Multivitamins,Therapeutic Tablet 1 TABLET PO (08:16)
[2023-10-02] MEDS: Senna/Docusate Sodium 1 Tablet 2 TABLET PO ×2 (08:16→21:21)
--- NOTE | 2023-10-02 11:37 | CASEMGMT ---
Social Work Pt admitted from . SW educated to SNF Medicare coverage. Reminded pt for brother to provide advanced directives documents. Confirmed code status as full code. Pt's goal is to return home alone at [facility]. SW to continue to follow for DC planning. Kathleen Cowan, VICTORINO FLORESW
--- NOTE | 2023-10-02 12:25 | NURSING ---
Offered covid vaccine, VIS provided. Patient refuses at this time.
--- NOTE | 2023-10-02 12:39 | NURSING ---
Anesthesiology Medical Doctor Note; Activity Asset: Alana Hassan came to TCU from . 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 She is independent in her choice of daily activities such as reading watching tv and vising w/family or friends. She will work on word puzzle during down time. She did state she welcomes visit from the deputy sheriff generalist/bailiff and therapy dog when available. Staff will remind her of daily in room and group activities and respect her right to say no.
[2023-10-02] MEDS: Ferrous Sulfate 325 MG Tablet PO (13:39)
[2023-10-02 13:42] VITALS: BP 104/70; PULSE 80; RESP 14; TEMP 36.8; O2SAT 95
--- NOTE | 2023-10-02 15:05 | NURSING ---
Addendum entered by Diana Curiel 10/03/23 15:41: Patient reporting she and family were called about her missing appt with Dr. Woodall today. Told her this RN had called his office yesterday, told office patient had appt 10/03/23 and would not be coming to it and asked if a video call/xrays/etc... could be done here as needed. Office called back shortly after with no new orders. This RN called Dr. Woodall's office today and spoke with Surekha. She can see notes about records being sent to Dr. Parekh on request but no further notes in chart. Updated patient. She still plans to f/u with Dr. Parekh after DC. Addendum entered by Diana Curiel 10/02/23 15:18: Updated patient. She reports she's been updating Dr. Parekh and will follow-up with him after DC from [facility]. Original Note: Spoke with patient about follow-up w/ Dr. Woodall in [place]. She refuses to go to that appt, wants to return to her previous ortho doctor, Dr. Parekh. This RN called and updated Dr. Woodall's staff. No new orders received. Per them if Dr. Parekh wants to have records send he can reach out to their office.
[2023-10-02] MEDS: Acetaminophen 500 MG Tablet 1000 MG PO (15:46)
[2023-10-02] MEDS: 0.9% Saline Lock 10 ML Syringe IV (15:47)
[2023-10-02] MEDS: Methocarbamol 500 MG Tablet PO (21:21)
[2023-10-02] MEDS: oxyCODONE 5 MG Tablet 10 MG PO (21:21)
[2023-10-02] MEDS: Mirtazapine 15 MG Tablet PO (21:22)
[2023-10-02 22:18] VITALS: O2SAT 96
[2023-10-03] MEDS: Enoxaparin 40 MG/0.4 ML Syringe SC (06:03)
[2023-10-03] MEDS: Acetaminophen 500 MG Tablet 1000 MG PO ×2 (06:06→19:39)
[2023-10-03] MEDS: Multivitamins,Therapeutic Tablet 1 TABLET PO (08:50)
[2023-10-03] MEDS: Senna/Docusate Sodium 1 Tablet 2 TABLET PO ×2 (08:50→21:24)
[2023-10-03 10:00] VITALS: PULSE 70; RESP 18; O2SAT 96
[2023-10-03] MEDS: Ferrous Sulfate 325 MG Tablet PO (11:23)
[2023-10-03] MEDS: oxyCODONE 5 MG Tablet PO (13:37)
[2023-10-03 14:00] VITALS: BP 180/70; PULSE 79; RESP 16; TEMP 36.9; O2SAT 96
--- NOTE | 2023-10-03 14:01 | CHAPLAIN ---
Type of Pastoral Visit ___ Initial Visit _x__ Follow-up Visit ___ On-call Visit ___ General Patient Visit ___ Spiritual Assessment ___ Family Conference ___ Bereavement ___ Rapid Response ___ Code Blue ___ Other (describe below) Pastoral Care Referral From _x__ Patient ___ Family ___ Nurse ___ Physician ___ Biztalk Software Developer ___ Boat Designer ___ Other (describe below) Sacrament/Intervention _x__ Active listening ___ Anointing ___ Hindu ___ Bereavement ___ Communion ___ Felisha exploration ___ ___ Life review _x__ Prayer ___ Reconciliation ___ Sacrament of Sick _x__ Supportive presence ___ Wedding ___ Other (describe below) Pastoral Comments follow up visit to this patient that had been seen in rehab; pt remembers this rounding machine operator and the visit; pt admits that she is anxious to get out of chair and to move more; pt talks about her situation and then that of the world as well; pt requests prayers for her support
[2023-10-03 15:40] VITALS: BMI 26.1
[2023-10-03] MEDS: Methocarbamol 500 MG Tablet PO (19:39)
[2023-10-03] MEDS: oxyCODONE 5 MG Tablet 10 MG PO (21:23)
[2023-10-03] MEDS: Mirtazapine 15 MG Tablet PO (21:24)
[2023-10-04] MEDS: Enoxaparin 40 MG/0.4 ML Syringe SC (05:24)
[2023-10-04] MEDS: Acetaminophen 500 MG Tablet 1000 MG PO (08:00)
[2023-10-04] MEDS: Multivitamins,Therapeutic Tablet 1 TABLET PO (08:01)
[2023-10-04] MEDS: Senna/Docusate Sodium 1 Tablet 2 TABLET PO ×2 (08:01→21:07)
--- NOTE | 2023-10-04 09:36 | CASEMGMT ---
Social Work IDT met with patient for care plan meeting. Discussed patient's progress in PT/OT/SN. Educated to Medicare benefit and copay coverage. Pt is progressing well and requested additional practice with several items in therapy. Once pt feels comfortable with being home alone, in the next week or so, pt to notify this worker and DC planning can be finalized. SW educated to C vs OP and DME needs to be coordinated at DC. Pt appreciative of all staff. SW will continue to follow for DC planning. VICTORINO KyleW
[2023-10-04] MEDS: oxyCODONE 5 MG Tablet PO (11:15)
[2023-10-04] MEDS: Ferrous Sulfate 325 MG Tablet PO (11:49)
[2023-10-04 14:00] VITALS: BP 111/75; PULSE 83; RESP 16; TEMP 37; O2SAT 95
[2023-10-04] MEDS: Mag Hydrox/Al Hydrox/Simeth 30 ML UDC 15 ML PO (15:44)
[2023-10-04] MEDS: Mirtazapine 15 MG Tablet PO (21:07)
[2023-10-04] MEDS: oxyCODONE 5 MG Tablet 10 MG PO (21:08)
[2023-10-05] MEDS: Senna/Docusate Sodium 1 Tablet 2 TABLET PO ×2 (08:37→20:55)
[2023-10-05] MEDS: Multivitamins,Therapeutic Tablet 1 TABLET PO (08:37)
[2023-10-05] MEDS: oxyCODONE 5 MG Tablet PO (08:41)
[2023-10-05 10:15] VITALS: PULSE 71; RESP 18; O2SAT 95
[2023-10-05] MEDS: Ferrous Sulfate 325 MG Tablet PO (11:20)
[2023-10-05] MEDS: Acetaminophen 500 MG Tablet 1000 MG PO (13:12)
--- NOTE | 2023-10-05 14:25 | MDS.RN ---
MDS pain interview completed.
[2023-10-05] MEDS: Mirtazapine 15 MG Tablet PO (20:55)
[2023-10-05] MEDS: Methocarbamol 500 MG Tablet PO (20:56)
[2023-10-05] MEDS: oxyCODONE 5 MG Tablet 10 MG PO (20:59)
[2023-10-06] MEDS: oxyCODONE 5 MG Tablet PO ×2 (09:11→17:34)
[2023-10-06] MEDS: Multivitamins,Therapeutic Tablet 1 TABLET PO (09:11)
[2023-10-06] MEDS: Senna/Docusate Sodium 1 Tablet 2 TABLET PO ×2 (09:11→22:04)
--- NOTE | 2023-10-06 09:41 | NURSING ---
Kids Club Attendant Note; MDS for 10/06/2023 Complete
[2023-10-06] MEDS: Ferrous Sulfate 325 MG Tablet PO (12:32)
[2023-10-06] MEDS: Acetaminophen 500 MG Tablet 1000 MG PO (12:34)
[2023-10-06 14:00] VITALS: BP 109/75; PULSE 74; RESP 16; TEMP 36.3; O2SAT 98
--- NOTE | 2023-10-06 16:09 | CASEMGMT ---
Social Work BIMS () and PHQ-2 () completed for MDS assessment. Kathleen Cowan MSW LANGUAGE INSTRUCTOR
[2023-10-06] MEDS: Magnesium Hydroxide 30 ML UDC PO (17:35)
[2023-10-06 19:55] VITALS: PULSE 74; RESP 18; O2SAT 97
[2023-10-06] MEDS: oxyCODONE 5 MG Tablet 10 MG PO (22:03)
[2023-10-06] MEDS: Methocarbamol 500 MG Tablet PO (22:04)
[2023-10-06] MEDS: Mirtazapine 15 MG Tablet PO (22:04)
[2023-10-07 07:40] LABS: Absolute Lymphocyte Count 1.94 X10^3/uL (0.83-4.51); Absolute Neutrophil Count 4.9 X10^3/uL (2.0-7.7); Basophil# 0.05 X10^3/uL; Basophil% 0.6 % (0-1); Eosinophil# 0.42 X10^3/uL; Eosinophils% 5.2 % (0-5); Hematocrit 33.6 % (37-47); Hemoglobin 10.4 g/dL (12.0-15.0); Lymphocyte # 1.94 X10^3/ul (0.83-4.51); Lymphocyte % 24.1 % (19-41); Mean Platelet Vol. 8.4 fl (6.2-12.0); Monocyte# 0.69 X10^3/uL; Monocyte% 8.6 % (0-10); NRBC Flagged by Analyzer 0 % (0-5); Neutrophil # 4.91 X10^3/uL (2.7-7.7); Platelet Count 560 K/mm3 (150-450); RBC Distribution Width CV 15.5 % (11.6-14.6); RBC Distribution Width SD 55.8 fl (35.1-43.9); Red Blood Count 3.36 M/mm3 (4.2-5.4); White Blood Count 8.1 K/mm3 (4.4-11.0)
[2023-10-07 07:56] LABS: Anion Gap 4 (5-15); BUN 14 mg/dL (7-18); BUN/Creat Ratio 23.4 RATIO (10-20); Calcium,Total 9.9 mg/dL (8.5-10.1); Chloride 105 mmol/L (98-107); EST Glomerular Filtration Rate 106 mL/min (>60); Est Glom Filt Rate - Afr Amer 128 mL/min (>60); Estimated Creatinine Clearance 70.05 ml/min; Glucose 86 mg/dL (74-106); Potassium 4.3 mmol/L (3.5-5.1); Sodium Level 136 mmol/L (136-145)
[2023-10-07] MEDS: Senna/Docusate Sodium 1 Tablet 2 TABLET PO ×2 (08:52→19:51)
[2023-10-07] MEDS: Multivitamins,Therapeutic Tablet 1 TABLET PO (08:52)
[2023-10-07] MEDS: Acetaminophen 500 MG Tablet 1000 MG PO ×2 (08:55→19:54)
[2023-10-07 10:00] VITALS: PULSE 78; RESP 16; O2SAT 97
[2023-10-07] MEDS: Tuberculin,Purif.prot.deriv. 50 TU/ML Vial 0.100000000000000006 ML ID (11:03)
[2023-10-07] MEDS: Ferrous Sulfate 325 MG Tablet PO (11:04)
[2023-10-07 14:00] VITALS: BP 106/68; PULSE 69; RESP 16; TEMP 37.2; O2SAT 96
[2023-10-07] MEDS: Methocarbamol 500 MG Tablet PO (19:51)
[2023-10-07] MEDS: Mirtazapine 15 MG Tablet PO (19:51)
--- NOTE | 2023-10-07 21:06 | NURSING ---
Patient put call light on and asked that all HS medications be given at this time. Patient refused the oxy 10mg at HS because she states that she has crazy dreams.
[2023-10-08] MEDS: Acetaminophen 500 MG Tablet 1000 MG PO (07:57)
[2023-10-08] MEDS: Senna/Docusate Sodium 1 Tablet 2 TABLET PO ×2 (07:59→21:51)
[2023-10-08] MEDS: Multivitamins,Therapeutic Tablet 1 TABLET PO (07:59)
[2023-10-08 09:00] VITALS: BP 122/80; PULSE 89; RESP 18; TEMP 36.5; O2SAT 96
[2023-10-08 10:00] VITALS: RESP 16; O2SAT 96
--- NOTE | 2023-10-08 10:28 | NURSING ---
THIS NURSE ANSWERED CALL DICKENS AT 0840 AT NURSES STATION AND PT STATED ON OTHER END THAT SHE NEEDED HELP. THIS NURSE TO ROOM AND FOUND PT SITTING STRAIGHT UP IN FRONT OF RECLINER ON FLOOR. CALLED FOR HELP AND ASKED PT WHAT HAPPENED. PT STATED SHE WAS GETTING UP TO GO TO BED FROM RECLINER AND WAS REACHING FOR CALL DICKENS TO PUT ON BED AND LOST HER BALANCE AND WENT DOWN SLOWLY ON HER BUTT. ASKED PT IF SHE HIT HER HEAD PT STATED NO,ASKED PT IF SHE HURT ANY WHERE,PT STATED NO. VITALS DONE,GOT PT UP OFF OF FLOOR AND BACK IN BED. NO SIGNS OF BRUISES OR CUTS ETC. WILL CONTINUE TO MONITOR. PT WAS AB ROSANNE IN ROOM, CHANGED PT BACK TO A 1 ASSIST AND EXPLAINED TO PT WHY. PT STATED SHE UNDER STOOD BUT WAS VERY TEARFUL. DID A LITTLE ONE ON ONE WITH PT. PT IS ALERT AND ORIENTED X 3. REPORTED TO RN,DIP LUBE OPERATOR,DR CANALES, TCU CUTTER HOT KNIFE, AND CALLED FAMILY.
[2023-10-08] MEDS: Ferrous Sulfate 325 MG Tablet PO (11:36)
[2023-10-08] MEDS: oxyCODONE 5 MG Tablet PO (11:37)
[2023-10-08 14:00] VITALS: BP 104/67; PULSE 71; RESP 16; TEMP 36.6; O2SAT 96
--- NOTE | 2023-10-08 14:19 | NURSING ---
This nurse did pt. assessment no c/o of pain or discomfort following fall. No new skin issues noted at this time.
[2023-10-08] MEDS: oxyCODONE 5 MG Tablet 10 MG PO (21:51)
[2023-10-08] MEDS: Mirtazapine 15 MG Tablet PO (21:51)
[2023-10-09 09:47] VITALS: BP 105/72; PULSE 77; RESP 16; O2SAT 96
[2023-10-09] MEDS: Senna/Docusate Sodium 1 Tablet 2 TABLET PO (09:49)
[2023-10-09] MEDS: Multivitamins,Therapeutic Tablet 1 TABLET PO (09:49)
[2023-10-09] MEDS: Methocarbamol 500 MG Tablet PO (09:51)
[2023-10-09] MEDS: Acetaminophen 500 MG Tablet 1000 MG PO (09:54)
[2023-10-09] MEDS: Ferrous Sulfate 325 MG Tablet PO (13:34)
[2023-10-09 14:00] VITALS: TEMP 36.4
[2023-10-09] MEDS: oxyCODONE 5 MG Tablet 10 MG PO (21:27)
[2023-10-09] MEDS: Mirtazapine 15 MG Tablet PO (21:29)
[2023-10-09] MEDS: Magnesium Hydroxide 30 ML UDC PO (21:31)
[2023-10-10] MEDS: Acetaminophen 500 MG Tablet 1000 MG PO (06:42)
[2023-10-10] MEDS: Multivitamins,Therapeutic Tablet 1 TABLET PO (09:16)
[2023-10-10] MEDS: Senna/Docusate Sodium 1 Tablet 2 TABLET PO (09:16)
[2023-10-10 10:00] VITALS: RESP 16; O2SAT 96
[2023-10-10] MEDS: Ferrous Sulfate 325 MG Tablet PO (11:17)
[2023-10-10] MEDS: Methocarbamol 500 MG Tablet PO (13:31)
--- NOTE | 2023-10-10 13:44 | MDS.RN ---
Information for the mds was obtained from review of the clinical record, interview of resident, staff, and direct observation of resident's care.
[2023-10-10 14:00] VITALS: BP 104/68; PULSE 85; RESP 18; TEMP 36.3; O2SAT 97
[2023-10-10 14:04] VITALS: BMI 26.2
--- NOTE | 2023-10-10 19:37 | PCA ---
Asked patient if they needed help washing up for the night. patient stated I've already done everything i need to for the night. Im good
[2023-10-10] MEDS: oxyCODONE 5 MG Tablet 10 MG PO (21:41)
[2023-10-10] MEDS: Mirtazapine 15 MG Tablet PO (21:41)
[2023-10-11] MEDS: Multivitamins,Therapeutic Tablet 1 TABLET PO (07:44)
[2023-10-11] MEDS: Methocarbamol 500 MG Tablet PO (07:46)
[2023-10-11] MEDS: Acetaminophen 500 MG Tablet 1000 MG PO (07:47)
[2023-10-11] MEDS: Ferrous Sulfate 325 MG Tablet PO (11:45)
[2023-10-11 14:00] VITALS: BP 109/70; PULSE 72; RESP 16; RESP 18; TEMP 36.9; O2SAT 96; O2SAT 97
--- NOTE | 2023-10-11 15:59 | CASEMGMT ---
Social Work Met with patient to discuss DC plans. Pt states her new medardo is being installed on 10/19-10/20. SW offered to DC 10/21. Pt agreed and will confirm with her brother for transport. Pt requesting HHC and denies DME needs. SW offered a skilled HHC list with quality and resource data via [employer], but pt denied and agreed to [facility]. SW phoned referral to [facility] PT/OT. Plan: DC home alone 10/21, [facility] PT/OT VICTORINO Kyle
--- NOTE | 2023-10-11 19:46 | DS.PCM_ITS ---
Providers Date of Admission: 09/29/23 Primary Care Physician: Dr. Td De Luna MD Reason For Visit: LEFT HIP FRACTURE Diagnosis Discharge Diagnosis (1) Debility: Status: Acute Code(s): R53.81 - Other malaise (2) History of left hip hemiarthroplasty: Status: Acute Code(s): Z96.642 - Presence of left artificial hip joint (3) Periprosthetic fracture around internal prosthetic left hip joint: Status: Acute Code(s): M97.02XA - Periprosthetic fracture around internal prosthetic left hip joint, initial encounter (4) Iron deficiency: Status: Acute Code(s): E61.1 - Iron deficiency (5) Depression: Status: Chronic Code(s): F32.A - Depression, unspecified Qualifiers: Depression Type: reactive depression Qualified Code(s): F32.9 - Major depressive disorder, single episode, unspecified (6) Hypertension: Status: Inactive Code(s): I10 - Essential (primary) hypertension Qualifiers: Hypertension type: primary hypertension Qualified Code(s): I10 - Essential (primary) hypertension (7) Hyponatremia: Status: Resolved Code(s): E87.1 - Hypo-osmolality and hyponatremia (8) Muscle spasm: Status: Acute Code(s): M62.838 - Other muscle spasm Plan 67 year old female with below past medical history hospitalized for left periprosthetic hip fracture, underwent left hip hemiarthroplasty 09/05/2023, admitted to 09/13/2023, transferred to TCU with debility, here for rehabilitation, strengthening, prior to discharge home alone. * Debility - PT/OT. * Pain - Tylenol 1000mg q8 prn pain (1-10), Oxycodone 5mg q4h prn, 10mg 2200. * Bowel - Senna/colace 2 tablets bid, Dulcolax 10mg pr x 1 prn, MOM 30ml po x 1 prn. * Adult immunization - Administer pneumonia vaccine, covid vaccine, flu vaccine as appropriate. * DVT prophylaxis - Lovenox 40mg sc daily. * Iron deficiency anemia - Ferrous sulfate 325mg daily, Iron sucrose 200mg iv daily thru 09/30/2023. * Indigestion - Mylanta II 15ml q6h prn. * Muscle spasm - Robaxin 500mg tid prn. * Depression/insomnia - Mirtazapine 15mg qhs, stable use, GDR not recommended. * Nutrition - MVI 1 tablet daily. Medications at Discharge Home Medications acetaminophen 500 mg tablet 1,000 mg (2 x 500 mg) PO Q8H PRN fever or pain 1-10 #1 TAB 09/28/23 ferrous sulfate 325 mg (65 mg iron) tablet (FeroSul) 325 mg PO DAILY@1200 Supplement 30 days #30 tabs 10/11/23 methocarbamol 500 mg tablet 500 mg PO TID PRN muscle spasm 30 days #90 tabs 10/11/23 mirtazapine 15 mg tablet 15 mg PO QHS Mood 30 days #30 tabs 10/11/23 oxycodone 5 mg tablet 10 mg (2 x 5 mg) PO 2200 Pain 7 days #28 tabs 10/11/23 sennosides 8.6 mg-docusate sodium 50 mg tablet (Stool Softener-Stimulant Laxative) 2 tab PO BID Constipation 30 days #120 tabs 10/11/23 Hospital Course Operations - (See below.) Procedures None Summary of Care Provided Minutes Spent on Discharge: 35 Hospital Course: 67 year old female with below past medical history hospitalized for left periprosthetic hip fracture, underwent left hip hemiarthroplasty 09/05/2023, admitted to 09/13/2023, transferred to TCU with debility, here for rehabilitation, strengthening, prior to discharge home alone. Discharge home alone 10/21/2023, [facility] PT/OT. Physical Exam Const alert General Appearance: cooperative HEENT normocephalic Eyes PERRL and EOMs intact bilaterally Neck supple, no JVD and no carotid bruits Resp normal respiratory effort, normal air movement and clear to auscultation bilaterally Cardio regular rate and regular rhythm GI normal to inspection, nondistended, normoactive bowel sounds, non-tender and non-distended Extremity normal capillary refill General Extremity: Negative for edema Skin no rashes or lesions noted General Skin Exam: no breakdown Psych affect normal Appearance: appropriate Weight / BMI Weight Weight: 73.845 kg Body Mass Index (BMI) 26.2 ABG / Lab / Microbiology Data 10/07/23 06:54 10/07/23 06:54 Microbiology: Microbiology 10/02/23 06:35 Nasal Secretion SARS-CoV-2 Antigen (Rapid) - Final D/C Instructions Discharge Diet: No restrictions Discharge Activity: Return to Normal Activity, May Shower and Use Walker Weight Bearing Status: Weight bearing as tolerated Call your doctor if you observe: Fever of 101 or Higher, Inability to urinate, Inability to have a bowel movement, Shortness of breath, Dizziness, Fainting spells, Swelling in the ankles, Chest pain and Uncontrolled pain Additional Instructions: Discharge home alone 10/21/2023, [facility] PT/OT. Please Follow Up With: Nidia Woodall MD When: As scheduled. Meaningful Use Info Meaningful Use Diagnoses (Choose all that apply): None applicable Discharge Plan Admission Admit Date/Time: 09/29/23 14:53 Primary Reason for Your Visit: Debility. Attending Provider: He Mauricio Chi Primary Care Provider: Td De Luna Instructions Additional Instructions / Restrictions: Discharge home alone 10/21/2023, [facility] PT/OT. Discharge Orders/Prescriptions Prescriptions: Continued methocarbamol 500 mg tablet 500 mg PO TID PRN (Reason: muscle spasm) 30 Days Qty: 90 0RF sennosides-docusate sodium [Stool Softener-Stimulant Laxat] 8.6-50 mg Tablet 2 tab PO BID 30 Days Qty: 120 0RF ferrous sulfate [FeroSul] 325 mg (65 mg iron) Tablet 325 mg PO DAILY@1200 30 Days Qty: 30 0RF Rx Instructions: Restart 10/01/23 mirtazapine 15 mg Tablet 15 mg PO QHS 30 Days Qty: 30 0RF oxycodone 5 mg Tablet 10 mg PO 2200 7 Days Qty: 28 0RF acetaminophen 500 mg Tablet 1,000 mg PO Q8H PRN (Reason: fever or pain 1-10) Qty: 1 0RF Discontinued multivitamin [Daily Multi-Vitamin] Tablet 1 tab PO DAILY enoxaparin 40 mg/0.4 mL Syringe 40 mg subcut DAILY@0600 Qty: 2 0RF Rx Instructions: DC after the last dose on 10/04/23. ciprofloxacin HCl 250 mg Tablet 250 mg PO BID Qty: 2 0RF Rx Instructions: DC after the last dose on 09/29/23 magnesium hydroxide 400 mg/5 mL Suspension 30 ml PO X1 PRN (Reason: Constipation) Qty: 1 0RF bisacodyl 10 mg Suppository 10 mg NJ X1 PRN (Reason: Constipation) Qty: 1 0RF Venofer 100 mg iron/5 mL Solution 200 mg IV DAILY Qty: 10 0RF Rx Instructions: She will get 200 mg IV on 09/29/23 and on 09/30/23 and then discontinue and restart the oral iron. alum-mag hydroxide-simeth [Mag-Al Plus Extra Strength] 400-400-40 mg/5 mL Suspension 15 ml PO Q6H PRN PRN (Reason: DYSPEPSIA) Qty: 1 0RF oxycodone 5 mg Tablet 5 mg PO Q4H PRN PRN (Reason: pain 4-10) 7 Days Qty: 30 0RF Rx Instructions: 5 mg Q4H PRN pain 4-10 and steve 10 mg at HS Referrals / Follow Up: Td De Luna MD [Primary Care Provider] - Disposition Disposition (needs filled in before D/C Order can be placed): Home Health Service
[2023-10-11] MEDS: Mirtazapine 15 MG Tablet PO (21:17)
[2023-10-11] MEDS: oxyCODONE 5 MG Tablet 10 MG PO (21:17)
[2023-10-11] MEDS: Senna/Docusate Sodium 1 Tablet 2 TABLET PO (21:17)
[2023-10-12] MEDS: Multivitamins,Therapeutic Tablet 1 TABLET PO (08:44)
[2023-10-12] MEDS: Senna/Docusate Sodium 1 Tablet 2 TABLET PO ×2 (08:44→21:21)
[2023-10-12] MEDS: Ferrous Sulfate 325 MG Tablet PO (11:01)
[2023-10-12] MEDS: Acetaminophen 500 MG Tablet 1000 MG PO (11:03)
[2023-10-12 13:08] VITALS: BP 128/90; PULSE 72; RESP 16; TEMP 36.7; O2SAT 97
[2023-10-12 13:20] VITALS: PULSE 78; RESP 18; O2SAT 95
[2023-10-12] MEDS: Methocarbamol 500 MG Tablet PO (13:44)
[2023-10-12] MEDS: Mirtazapine 15 MG Tablet PO (21:21)
[2023-10-12] MEDS: oxyCODONE 5 MG Tablet 10 MG PO (21:22)
[2023-10-13] MEDS: Multivitamins,Therapeutic Tablet 1 TABLET PO (08:20)
[2023-10-13] MEDS: Senna/Docusate Sodium 1 Tablet 2 TABLET PO (08:20)
[2023-10-13] MEDS: Acetaminophen 500 MG Tablet 1000 MG PO (08:22)
[2023-10-13 10:00] VITALS: RESP 16; O2SAT 96
[2023-10-13] MEDS: Ferrous Sulfate 325 MG Tablet PO (11:27)
--- NOTE | 2023-10-13 13:15 | NURSING ---
Patient wanted Dr. Parekh appt made. Per Dr. Parekh's office she is in the 90 day window after surgery and needs to follow-up with the surgeon. Updated patient. She will call to set up appt with Dr. Woodall.
[2023-10-13 14:00] VITALS: BP 117/82; PULSE 71; RESP 16; TEMP 36.8; O2SAT 97
[2023-10-13] MEDS: Mirtazapine 15 MG Tablet PO (21:05)
[2023-10-13] MEDS: oxyCODONE 5 MG Tablet 10 MG PO (21:05)
[2023-10-14 08:21] LABS: Absolute Lymphocyte Count 1.58 X10^3/uL (0.83-4.51); Absolute Neutrophil Count 4.5 X10^3/uL (2.0-7.7); Basophil# 0.04 X10^3/uL; Basophil% 0.6 % (0-1); Eosinophil# 0.39 X10^3/uL; Eosinophils% 5.6 % (0-5); Hematocrit 34.9 % (37-47); Hemoglobin 11.3 g/dL (12.0-15.0); Lymphocyte # 1.58 X10^3/ul (0.83-4.51); Lymphocyte % 22.5 % (19-41); Mean Corp Hgb Conc 32.4 g/dL (32-36); Mean Corpuscular Hgb 31.8 pg (27.0-32.0); Mean Corpuscular Volume 98.3 fL (81-99); Mean Platelet Vol. 8.2 fl (6.2-12.0); Monocyte# 0.52 X10^3/uL; Monocyte% 7.4 % (0-10); NRBC Flagged by Analyzer 0 % (0-5); Neutrophil # 4.46 X10^3/uL (2.7-7.7); Neutrophil % 63.6 % (47-70); Platelet Count 508 K/mm3 (150-450); RBC Distribution Width CV 15.1 % (11.6-14.6); RBC Distribution Width SD 54.7 fl (35.1-43.9); Red Blood Count 3.55 M/mm3 (4.2-5.4)
[2023-10-14] MEDS: Acetaminophen 500 MG Tablet 1000 MG PO (08:36)
[2023-10-14] MEDS: Multivitamins,Therapeutic Tablet 1 TABLET PO (08:36)
[2023-10-14] MEDS: Senna/Docusate Sodium 1 Tablet 2 TABLET PO ×2 (08:36→21:13)
[2023-10-14 08:39] LABS: Anion Gap 3 (5-15); BUN 17 mg/dL (7-18); BUN/Creat Ratio 26.6 RATIO (10-20); Calcium,Total 9.7 mg/dL (8.5-10.1); Chloride 105 mmol/L (98-107); Creatinine, Serum 0.64 mg/dL (0.55-1.02); EST Glomerular Filtration Rate 98 mL/min (>60); Est Glom Filt Rate - Afr Amer 119 mL/min (>60); Estimated Creatinine Clearance 70.15 ml/min; Glucose 86 mg/dL (74-106); Potassium 4.5 mmol/L (3.5-5.1); Sodium Level 134 mmol/L (136-145)
[2023-10-14 10:00] VITALS: RESP 16; O2SAT 96
[2023-10-14] MEDS: Ferrous Sulfate 325 MG Tablet PO (11:43)
[2023-10-14 14:00] VITALS: BP 108/71; PULSE 72; RESP 18; TEMP 36.5; O2SAT 95
[2023-10-14] MEDS: Mirtazapine 15 MG Tablet PO (21:13)
[2023-10-14] MEDS: oxyCODONE 5 MG Tablet 10 MG PO (21:14)
[2023-10-15] MEDS: Senna/Docusate Sodium 1 Tablet 2 TABLET PO ×2 (08:45→21:49)
[2023-10-15] MEDS: Multivitamins,Therapeutic Tablet 1 TABLET PO (08:45)
[2023-10-15] MEDS: Acetaminophen 500 MG Tablet 1000 MG PO (08:46)
[2023-10-15 10:00] VITALS: RESP 16; O2SAT 96
[2023-10-15] MEDS: Ferrous Sulfate 325 MG Tablet PO (11:05)
[2023-10-15 14:00] VITALS: BP 107/71; PULSE 75; RESP 16; TEMP 36.6; O2SAT 95
[2023-10-15] MEDS: oxyCODONE 5 MG Tablet 10 MG PO (21:48)
[2023-10-15] MEDS: Mirtazapine 15 MG Tablet PO (21:49)
[2023-10-16] MEDS: Multivitamins,Therapeutic Tablet 1 TABLET PO (07:48)
[2023-10-16] MEDS: Acetaminophen 500 MG Tablet 1000 MG PO ×2 (07:51→16:34)
--- NOTE | 2023-10-16 09:03 | NURSING ---
PT LEFT BY WHEEL CHAIR ,FRIEND TAKING PT TO [place] FOR APPOINTMENT.
[2023-10-16] MEDS: Ferrous Sulfate 325 MG Tablet PO (13:46)
[2023-10-16 13:47] VITALS: BP 123/72; PULSE 67; RESP 14; TEMP 36.8; O2SAT 98
--- NOTE | 2023-10-16 13:47 | NURSING ---
PT RETURNED FROM APPOINTMENT IN [place]. NO NEW ORDERS,FOLLOW UP APPOINTMENT SCHEDULED THERE. PT STATED SHE MAY CALL AND RESCHEDULE DUE TO SHE DID NOT WANT TO TRAVEL TO [place] AGAIN.
[2023-10-16] MEDS: oxyCODONE 5 MG Tablet 10 MG PO (21:24)
[2023-10-16] MEDS: Senna/Docusate Sodium 1 Tablet 2 TABLET PO (21:24)
[2023-10-16] MEDS: Mirtazapine 15 MG Tablet PO (21:24)
[2023-10-16 21:30] VITALS: O2SAT 97
[2023-10-17] MEDS: Multivitamins,Therapeutic Tablet 1 TABLET PO (08:44)
[2023-10-17] MEDS: Acetaminophen 500 MG Tablet 1000 MG PO ×2 (08:45→16:49)
[2023-10-17] MEDS: Senna/Docusate Sodium 1 Tablet 2 TABLET PO ×2 (08:45→21:38)
[2023-10-17 10:00] VITALS: O2SAT 96
[2023-10-17 11:06] VITALS: BMI 26.0
[2023-10-17] MEDS: Ferrous Sulfate 325 MG Tablet PO (11:26)
[2023-10-17 13:38] VITALS: BP 137/77; PULSE 74; RESP 18; TEMP 36.6; O2SAT 98
[2023-10-17] MEDS: oxyCODONE 5 MG Tablet 10 MG PO (21:38)
[2023-10-17] MEDS: Mirtazapine 15 MG Tablet PO (21:38)
[2023-10-18] MEDS: Acetaminophen 500 MG Tablet 1000 MG PO (07:42)
[2023-10-18] MEDS: Multivitamins,Therapeutic Tablet 1 TABLET PO (07:43)
[2023-10-18] MEDS: Ferrous Sulfate 325 MG Tablet PO (11:46)
[2023-10-18 13:09] VITALS: BP 114/77; PULSE 70; RESP 18; TEMP 36.9; O2SAT 98
--- NOTE | 2023-10-18 16:55 | NURSING ---
PT UPDATED ON A PT ON FLOOR TESTING POSITIVE FOR COVID. PT STATED NO NEED TO CALL FAMILY.
[2023-10-18 17:00] VITALS: PULSE 60; RESP 18; O2SAT 98
[2023-10-18] MEDS: oxyCODONE 5 MG Tablet 10 MG PO (21:28)
[2023-10-18] MEDS: Mirtazapine 15 MG Tablet PO (21:29)
[2023-10-18] MEDS: Senna/Docusate Sodium 1 Tablet 2 TABLET PO (21:29)
[2023-10-19] MEDS: Senna/Docusate Sodium 1 Tablet 2 TABLET PO ×2 (07:38→21:16)
[2023-10-19] MEDS: Multivitamins,Therapeutic Tablet 1 TABLET PO (07:38)
[2023-10-19] MEDS: Acetaminophen 500 MG Tablet 1000 MG PO (07:42)
[2023-10-19] MEDS: Methocarbamol 500 MG Tablet PO (07:43)
[2023-10-19] MEDS: Ferrous Sulfate 325 MG Tablet PO (11:14)
--- NOTE | 2023-10-19 11:43 | MDS.RN ---
Pain interview for MDS completed.
[2023-10-19 11:45] VITALS: PULSE 64; RESP 18; O2SAT 95
[2023-10-19 14:00] VITALS: BP 114/72; PULSE 67; RESP 16; TEMP 36.3; O2SAT 96
[2023-10-19] MEDS: Mirtazapine 15 MG Tablet PO (21:16)
[2023-10-19] MEDS: oxyCODONE 5 MG Tablet 10 MG PO (21:17)
[2023-10-20] MEDS: Multivitamins,Therapeutic Tablet 1 TABLET PO (08:22)
[2023-10-20] MEDS: Acetaminophen 500 MG Tablet 1000 MG PO (08:28)
[2023-10-20] MEDS: Ferrous Sulfate 325 MG Tablet PO (11:14)
--- NOTE | 2023-10-20 12:07 | CASEMGMT ---
Social Work BIMS () and PHQ-2 () completed for MDS assessment. Kathleen Cowan MSW CAPSULE MACHINE OPERATOR
[2023-10-20 14:00] VITALS: BP 112/75; PULSE 78; RESP 16; TEMP 36.4; O2SAT 97
[2023-10-20] MEDS: Senna/Docusate Sodium 1 Tablet 2 TABLET PO (21:16)
[2023-10-20] MEDS: Mirtazapine 15 MG Tablet PO (21:16)
[2023-10-20] MEDS: oxyCODONE 5 MG Tablet 10 MG PO (21:17)
[2023-10-21 08:27] LABS: Absolute Lymphocyte Count 1.45 X10^3/uL (0.83-4.51); Absolute Neutrophil Count 3.4 X10^3/uL (2.0-7.7); Basophil# 0.06 X10^3/uL; Eosinophil# 0.36 X10^3/uL; Eosinophils% 6.1 % (0-5); Hematocrit 33.4 % (37-47); Hemoglobin 10.6 g/dL (12.0-15.0); Lymphocyte # 1.45 X10^3/ul (0.83-4.51); Lymphocyte % 24.7 % (19-41); Mean Corp Hgb Conc 31.7 g/dL (32-36); Mean Corpuscular Hgb 31.2 pg (27.0-32.0); Mean Corpuscular Volume 98.2 fL (81-99); Mean Platelet Vol. 8.7 fl (6.2-12.0); Monocyte# 0.59 X10^3/uL; Monocyte% 10.1 % (0-10); NRBC Flagged by Analyzer 0 % (0-5); Neutrophil # 3.39 X10^3/uL (2.7-7.7); Neutrophil % 57.8 % (47-70); Platelet Count 419 K/mm3 (150-450); RBC Distribution Width CV 15.2 % (11.6-14.6); White Blood Count 5.9 K/mm3 (4.4-11.0)
[2023-10-21] MEDS: Multivitamins,Therapeutic Tablet 1 TABLET PO (08:30)
[2023-10-21] MEDS: Acetaminophen 500 MG Tablet 1000 MG PO (08:30)
[2023-10-21] MEDS: Senna/Docusate Sodium 1 Tablet 2 TABLET PO (08:31)
[2023-10-21 08:54] LABS: Anion Gap 2 (5-15); BUN 18 mg/dL (7-18); BUN/Creat Ratio 28.8 RATIO (10-20); Calcium,Total 9.1 mg/dL (8.5-10.1); Chloride 110 mmol/L (98-107); Creatinine, Serum 0.63 mg/dL (0.55-1.02); EST Glomerular Filtration Rate 101 mL/min (>60); Est Glom Filt Rate - Afr Amer 122 mL/min (>60); Estimated Creatinine Clearance 69.99 ml/min; Glucose 80 mg/dL (74-106); Potassium 4.4 mmol/L (3.5-5.1); Sodium Level 138 mmol/L (136-145)
[2023-10-21] MEDS: Ferrous Sulfate 325 MG Tablet PO (11:02)
== END 2023-10-21 11:40 | disposition home health service (06) | DRG 560 ==
PROVIDERS: Admitting Provider Family Medicine Geriatric Medicine; PCP Family Medicine; Referring Provider Family Medicine Geriatric Medicine; Visit Provider Family Medicine Geriatric Medicine
DX: M97.02XD Periprosthetic fracture around internal prosthetic left hip joint, subsequent encounter (principal); E87.1 Hypo-osmolality and hyponatremia; N39.0 Urinary tract infection, site not specified; Z16.12 Extended spectrum beta lactamase (ESBL) resistance; F32.9 Major depressive disorder, single episode, unspecified; D50.9 Iron deficiency anemia, unspecified; I10 Essential (primary) hypertension; M62.838 Other muscle spasm; W19.XXXD Unspecified fall, subsequent encounter; Z79.01 Long term (current) use of anticoagulants; G47.00 Insomnia, unspecified; B96.20 Unspecified Escherichia coli [E. coli] as the cause of diseases classified elsewhere; Z79.899 Other long term (current) drug therapy
CPT/HCPCS: 36415; 80048; 85025; 87811; 97110; 97116; 97162; 97166; 97530; 97535; 97802; J1756; A4216